=== PATIENT | female | born 1945 | race Caucasian/White ===

== ENCOUNTER → 2024-03-07 13:23 | Outpatient (REF) | payer OTHER, SELFPAY | LOC: HWRAD 13:23 | PROVIDERS: ATTENDING PHYSICIAN Nurse Practitioner Adult Health; FAMILY PHYSICIAN Nurse Practitioner | DX: K86.2 Cyst of pancreas (principal); R10.13 Epigastric pain | CPT/HCPCS: 76700 ==

== ENCOUNTER → 2024-06-25 11:07 | Outpatient (REF) | payer OTHER, SELFPAY | LOC: HWRAD 11:07 | PROVIDERS: ATTENDING PHYSICIAN Internal Medicine Endocrinology, Diabetes & Metabolism; FAMILY PHYSICIAN Nurse Practitioner | DX: E04.2 Nontoxic multinodular goiter (principal) | CPT/HCPCS: 76536 ==

== ENCOUNTER → 2024-08-07 14:42 | Outpatient (REF) | payer OTHER, SELFPAY | LOC: HWWDC 14:42 | DX: Z12.31 Encounter for screening mammogram for malignant neoplasm of breast (principal) | CPT/HCPCS: 77063; 77067 ==

== ENCOUNTER 2024-12-09 15:48 | Emergency (ER) | payer OTHER, SELFPAY ==
[2024-12-09] VITALS (15 sets, daily range): BP systolic 143–192; BP diastolic 68–102; BMI 37.7
--- NOTE | 2024-12-09 20:42 | ED.MUSCINJ ---
HPI-Injury
General
Chief Complaint: Musculo-Skeletal Complaint
Source: patient
Exam Limitations: none
Time Seen by Provider: 12/09/24 20:20
Nursing documentation reviewed up to this point in time: agreed with
History of Present Illness-Injury
Is this injury a work related problem?: No
Is pt an associate of [facility]?: No
Initial Injury comments:
79-year-old female presents Emergency Department due to right shoulder pain. She also got earlier in the week, but not completely out. Today while she was gardening she felt a pop out completely and came to the emergency department by ambulance.
Past History
Past History
ED Past Medical History: NIDDM
ED Past Surgical History: Gynecological (Partial hysterectomy)
Social History
Tobacco: Non-smoker
Alcohol: None
Drug: None
Review of Systems
Review of Systems
Allergies reviewed?: Yes
All Other Systems: Not applicable
Constitutional: Reports no symptoms
EENT: Reports no symptoms
Respiratory: Reports no symptoms
Cardiac: Reports no symptoms
ABD/GI: Reports no symptoms
: Reports no symptoms
Musculoskeletal: Reports joint pain
Skin: Reports no symptoms
Neurological: Reports no symptoms
Endocrine: Reports no symptoms
Hematologic/Lymphatic: Reports no symptoms
Psychiatric: Reports no symptoms
Phy Exam
Physical Exam
Physical Exam:
Physical Exam
General: no apparent distress, not acutely ill
Neck: supple. no meningeal signs. normal posterior pharynx
Heart: s1/s2 regular rate and rhythm, no murmur. equal radial
pulses.
HEENT: Pupils equal round reactive to light, EOMI
Lungs: no acute respiratory distress. clear bilaterally
Abdomen: normal bowel sounds. not tender. no CVAT
Neuro: alert and oriented. no focal neurological deficits cranial nerves II through XII intact
Skin: no rash
Psychiatric: well kept. interactive and cooperative
Extremities: no edema. no calf tenderness. negative homans. good distal pulses, right shoulder anterior deformity
Injury Course
Orders/Labs/Results
Orders:
Orders
12/09/24 16:13
CR Shoulder, Trauma - Right Urgent
Reason For Exam: pain
12/09/24 20:41
ASA Classification Routine
Propofol [Diprivan] 60 mg IV NOW STA
12/09/24 22:02
Shoulder, Right 2 Views [CR Shoulder - Right Min 2 View] Urgent
Comment: portable
Reason For Exam: post reduction
Procedures
Moderate Sedation
ASA Risk Score: Class II
Chart and allergies reviewed: Yes
Consent for anesthesia obtained: Yes
Time out completed (validating right patient & procedure): Yes
Moderate Sedation Start Time(when first medication is given): 21:51
History of difficult intubation: No
Airway free of obstruction: Yes
Patient has a gag reflex: Yes
Patient is able to open mouth: Yes
Patient has no dentures: Yes
Patient has no loose teeth: Yes
Medication administered by Provider during Moderate Sedation: IV Propofol (mg)
Total dose administered: 90
Time drug administered: 21:51
Moderate Sedation Procedure End Time: 22:05
Joint/Fracture Reduction
Right Shoulder:
Indication for procedure:: right shoulder dislocation
Procedure completed by: Jadyn
Consent form signed: Yes
Joint reduced: with anesthesia sedation
Anesthesia/sedation: Moderate sedation
Injury was: closed
Further treatement: needs re-check only
Post reduction exam: stable
Capillary Refill: normal
Normal distal neurovascular exam?: Yes
Peripheral Pulses: radial (right): 4+
MDM/Problems Addressed
Differential Diagnosis Includes:
Humerus fracture, shoulder dislocation
MDM/Problems Addressed:
79-year-old female with right shoulder dislocation, satisfactory reduction under moderate sedation. Patient tolerated sedation well. Sling, follow-up with orthopedic.
*Radiology
Radiology exam reviewed: preliminary read by ED provider (Right shoulder x-ray anterior dislocation)
*Pulse Oximetry
Patient hypoxic: no
*Route Delivery Driver Interpretation
Rate: normal
Interpretation: normal
Heart Rate: 88
Rhythm: sinus
*Critical Care Note
Total Time (30-74mins, 75-104mins- exclusive of procedures): Not Applicable
Patient Management
Social determinants of health affecting care: Living situation and Strong social support
Escalation/DeEscalation of care consider admission/obs:
Admit not indicated
ED Attending Note
-
Portions of this chart may have been created with voice recognition software.� Occasional wrong word or��sound alike� substitutions may have occurred due to the inherent limitations of voice recognition software.
Discharge Plan
Departure
Patient Disposition: Home (Routine Discharge)
Date of Disposition: 12/09/24
Time of Disposition: 23:15
Patient with high blood pressure during this ER visit?: Yes
Condition: Good
Discharge Problem:
Anterior dislocation of right shoulder
Instructions: Shoulder Dislocation (DC), MODERATE SEDATION ADULT, BLOOD PRESSURE
Referrals:
Roxanne Winchester MD [Family Provider] -
Thomas Abreu MD [Active] - Call in 1-3 days for appt
Interventions
Interventions:
*Risk Screen - Suicide Last Done: 12/09/24 21:23
*General Assessment Last Done: 12/09/24 21:23
*Neglect/Abuse Screening Last Done: 12/09/24 21:23
*ED COVID-19 Vaccine History Last Done: 12/09/24 21:23
ED-Musculoskeletal Assessment Last Done: 12/09/24 21:22
Discharge Date and Time
Print Language: FRISIAN
[2024-12-09] MEDS: DIPRIVAN 60 MG IV (21:53)
== END 2024-12-09 23:40 | disposition home or self-care (01) ==
LOC: EMR 15:48
PROVIDERS: EMERGENCY PHYSICIAN Emergency Medicine; FAMILY PHYSICIAN Internal Medicine
DX: S43.014A Anterior dislocation of right humerus, initial encounter (principal); X58.XXXA Exposure to other specified factors, initial encounter; E11.9 Type 2 diabetes mellitus without complications
CPT/HCPCS: 23650; 99152; 99285; 73030

== ENCOUNTER → 2024-12-11 11:53 | Outpatient (REF) | payer OTHER, SELFPAY | LOC: HWRAD 11:53 | PROVIDERS: ATTENDING PHYSICIAN Physician Assistant Surgical | DX: S43.004A Unspecified dislocation of right shoulder joint, initial encounter (principal) | CPT/HCPCS: 73200 ==

== ENCOUNTER → 2024-12-19 11:10 | Outpatient (REF) | payer OTHER, SELFPAY | LOC: PET 11:10 | PROVIDERS: ATTENDING PHYSICIAN Internal Medicine Hematology & Oncology | DX: R91.1 Solitary pulmonary nodule (principal) | CPT/HCPCS: 78815; A9552 ==

== ENCOUNTER → 2025-01-03 09:42 | Outpatient (REF) | payer OTHER, SELFPAY | LOC: RAD 09:42 | PROVIDERS: ATTENDING PHYSICIAN Internal Medicine Critical Care Medicine | DX: R91.8 Other nonspecific abnormal finding of lung field (principal) | CPT/HCPCS: 71250 ==

== ENCOUNTER 2025-01-08 06:05 | Day surgery (SDC) | payer OTHER, SELFPAY ==
[2025-01-03 14:09] VITALS: BMI 32.0
[2025-01-08 06:45] VITALS: BMI 32.7
[2025-01-08 06:50] VITALS: BP 136/76
[2025-01-08 07:10] VITALS: BMI 32.7
[2025-01-08 07:37] LABS: Glucose - Point of Care 138 mg/dl (70-99)
--- NOTE | 2025-01-14 00:53 | W.PN.UPDATE ---
Update Note
Progress Note Update
Today's procedure (01/08/2025) was canceled as patient had no body to physically come to the hospital to pick her up. Her plan was to take public transportation back home after the procedure and then have a friend stay with her for the remainder of
the evening. The pt does not have any body's cell phone or other contact information on her phone. Patient was explained the dangers of letting her go home unattended given the anesthesia that was going to be given to her, lindy at her age. She was
upset, but ultimately understood. I updated the referring teacher selection specialist, Dr. Barragan, as well as her Oncologist, Dr. Yee and even her Orthopedic doctor so that everyone is on the same page. Procedure to be re-scheduled urgently. She was advised
that she physically needs to have someone come to the hospital to pick her up next time, otherwise she risks the procedure again being canceled/rescheduled. She understood my instructions.
(of note, this update note reflects the conversation and other clinical care that took place on the morning of 01/08/2025)
== END 2025-01-08 09:25 | disposition home or self-care (01) ==
LOC: GI 06:05
PROVIDERS: ATTENDING PHYSICIAN Internal Medicine Critical Care Medicine
DX: R91.8 Other nonspecific abnormal finding of lung field (principal); R06.02 Shortness of breath; K21.00 Gastro-esophageal reflux disease with esophagitis, without bleeding; Z53.9 Procedure and treatment not carried out, unspecified reason
CPT/HCPCS: 31622; 82962; 94640

== ENCOUNTER 2025-01-22 06:23 | Day surgery (SDC) | payer OTHER, SELFPAY ==
[2025-01-22] VITALS (11 sets, daily range): BP systolic 120–172; BP diastolic 57–109; BMI 33.0
[2025-01-22 08:42] LABS: Glucose - Point of Care 129 mg/dl (70-99)
--- NOTE | 2025-01-22 09:53 | PTCARENOTE ---
Dr. Adkins and Dr. Stuart aware of ride situation home and discussed with patient extensively on 01/15. Patient will be taking hospital LYFT home. Dr. August aware and will place a D/C order to home via LYFT.
[2025-01-22 13:00] LABS: Glucose - Point of Care 113 mg/dl (70-99)
--- NOTE | 2025-01-22 14:46 | CM ---
CM was advised that patient does not have a ride home despite multiple conversations. CM will provide patient a ride via Lyft.
--- NOTE | 2025-01-22 15:21 | W.PN.UPDATE ---
Update Note
Progress Note Update
Patient tolerated the robotic bronchoscopy without any immediate complications. Post bronchoscopy CXR showed no evidence of pneumothorax. Okay for patient to be discharged home via Lyft. SpO2 just prior to discharge was 94% on room air.
== END 2025-01-22 15:10 | disposition home or self-care (01) ==
LOC: GI 06:23
PROVIDERS: ATTENDING PHYSICIAN Internal Medicine Critical Care Medicine
DX: R91.1 Solitary pulmonary nodule (principal); C34.11 Malignant neoplasm of upper lobe, right bronchus or lung; R91.8 Other nonspecific abnormal finding of lung field; Z87.891 Personal history of nicotine dependence
CPT/HCPCS: 31629; 31628; 31624; 31623; 31627; 31654; 88173; 88305; 71045; 76000; 81459; 82962; 87015; 87070; 87102; 87116; 87205; 88112; 88333; 88341; 88342; 94640; C1887

== ENCOUNTER 2025-03-03 07:11 | Inpatient (IN) | payer OTHER, SELFPAY ==
[2025-02-20 12:12] VITALS: BMI 33.9
[2025-02-20 13:01] LABS: Hematocrit 37.4 % (37.0-47.0); Hemoglobin 12.4 g/dL (12.0-16.0); Mean Corp Hgb Conc. 33.2 g/dL (33.0-37.0); Mean Corpuscular Volume 87.6 fL (81.0-99.0); Nucleated Red Blood Cells % 0 %; Platelet Count 254 10^3/uL (130-400); Red Cell Dist. Width 14.7 % (11.5-14.5)
[2025-02-20 13:08] LABS: INR 0.98; PT 13.5 Sec (11.4-14.6)
[2025-02-20 13:48] LABS: ALT (SGPT) 17 U/L (0-35); AST (SGOT) 20 U/L (14-36); Albumin 4.2 g/dl (3.5-5.0); Alkaline Phosphatase 119 U/L (38-126); Blood Urea Nitrogen 15 mg/dl (7-17); Calcium 9.5 mg/dl (8.4-10.2); Carbon Dioxide 25 mmol/L (22-30); Chloride 106 mmol/L (98-107); Estimated Creatinine Clearance 55 ml/min; Glucose 104 mg/dl (70-99); Potassium 3.9 mmol/L (3.5-5.1); Sodium 137 mmol/L (135-145); Total Protein 7.0 g/dl (6.3-8.2); eGFR > 60.00
[2025-02-20 13:58] LABS: Urine Character Clear (Clear)
--- NOTE | 2025-02-20 14:50 | CM ---
Met with Miss Dorsey in [facility]. She states prior to admission she resides alone in a two story home without any steps to enter. She states she has to go up a full flight of steps to get to bedroom/full bathroom. She states she has a powder room on
the first floor. She states prior to admission she was independent with ambulation and adls. She states she does not have any DME in the home. She states she has a prescription plan and uses [facility]. She is hoping she will be able to return
home alone. The discharge plan is to return home with a home visit by the Transitional Care Nurse when medically stable.
We reviewed pre-op and post-op routines. We reviewed the shower instructions. She has the soap, written instructions and the Thoracic (Lung) Surgery Educational Booklet. We reviewed restrictions including lifting and driving restrictions.. We
also discussed a home visit by the Transitional Care Nurse. She is agreeable to a home visit. The plan is for RATS RUL and LN dissection on Monday, March 03, 2025.
[2025-02-20 15:00] LABS: Glycohemoglobin (HgbA1c) 6.6 % (4.0-5.6)
[2025-03-03] VITALS (16 sets, daily range): BP systolic 97–150; BP diastolic 52–97; BMI 33.0
--- NOTE | 2025-03-03 10:15 | PTCARENOTE ---
Patient clipped and prepped; CHG cloth bath given; ABO drawn by tree pruner and sent to lab; Report given to Denita AVILA
[2025-03-03 11:05] LABS: Urine Character Clear (Clear)
--- NOTE | 2025-03-03 11:19 | W.CVOR.SURPR ---
CVOR Surgeon Immed Pre Op
-
I have examined this patient prior to performance of the scheduled procedure.
The patient's condition is unchanged from the time of the dictated/written History and
Physical and the patient is able to undergo the scheduled procedure.
RUL + LN
[2025-03-03 11:41] LABS: Urine Squamous Cell >30 /LPF (Few)
[2025-03-03 11:42] LABS: Urine Urothelial Cell 0-2 /LPF (FEW)
[2025-03-03 11:43] LABS: Urine Red Blood Cell 0-2 /HPF (0-2)
[2025-03-03 13:17] LABS: B.E. - POC -0.0 mmol/L; Glucose - POC 109 mg/dl (70-99); HCO3 - POC 25 mmol/L (21-28); Hematocrit - POC 33 % PCV (37-47); Hemodilution- POC No; Hemoglobin Calculated - POC 11.3; Ionized Calcium - POC 1.22 mmol/L (1.15-1.33); Lactate - POC 0.76 mmol/L (0.36-0.75); O2 Saturation %Calculated-POC 96.8 % (94-98); PCO2 - POC 43 mmHg (35-48); PO2 - POC 91 mmHg (83-108); Potassium - POC 4.0 mmol/L (3.5-5.1); Sodium - POC 140 mmol/L (136-145); Specimen Type - POC Arterial; pH - POC 7.38 (7.35-7.45)
--- NOTE | 2025-03-03 13:59 | W.PN.CT.SURG ---
CT Surgery Operative Note
-
THORACIC SURGERY OPERATIVE REPORT
Preoperative Diagnosis: Right upper lobe adenocarcinoma
Postoperative Diagnosis: Same
Procedure(s) Performed:
1. Robotic assisted thoracic surgery [R ATS]
2. Right upper lobectomy with partial wedge of the right middle lobe using electrocautery as it was adherent to the right upper lobe mass
3. Radical lymph node dissection
4. Regional block by anesthesia
Date of Surgery: 03/03/2025
Comorbidities:
1. Right upper lobe adenocarcinoma
2. Ocular aneurysm
3. Thyroid nodules
4. Osteoporosis
5. Colonic polyps
6. Rotator cuff tear awaiting surgery
7. Hypertension
8. Diabetic
9. Pancreatic cyst
10. GERD
11. PUD
12. Skin cancer status post resection
Attending Surgeon: Anson Dorado MD, MS
Assistants: Ambreen Cook PA-C (present and necessary to first aid officer, exchanging robotic instruments, retraction, suction, exposure, suture management, and wound closure under my direction)
Anesthesiology: Petros Preston MD and Meme Lorenzana CRNA
Scrub and Circulating RNs: Sridhar Crenshaw, RN, Lopez Guzman RN
Anesthesia: Dual Lumen GETA
EBL: 100 cc
Products: None
Indication(s) for Procedures: This is an 80-year-old female who was independent and found to have right upper lobe adenocarcinoma. She is referred to me for right upper lobe resection versus SBRT. Given that she is independent, travels around and
quite functional, I offered her right upper lobectomy with liver dissection given her cancer was a stage I A3.
Findings: There were no obvious intrathoracic lesions concerning for disease, she did have significant emphysema with hyperinflation of her right lung that required multiple suctioning in order to deflate. The right upper lobe mass was easily
identified as there was puckering. There was an area that was adherent to the right middle lobe and so using electrocautery, a margin of several millimeters was taken here leaving it adherent to the mass. She had rarely poorly developed fissures
and so a significant mount of time was spent dissecting through the lung parenchyma the right upper, right middle and right lower lobes. Once the confluence of the pulmonary artery was able to be identified deep inside the fissure I
followed this and developed the posterior and anterior planes. She had several large bridging vessels between her lobes and vessel sealer was used here. Multiple lymph nodes were harvested but not appearing to be abnormal. Once the right upper
lobe was skeletonized, the vein was taken first followed by the large truncal branch to the right upper lobe from the pulmonary artery followed by the bronchus. Before dividing the bronchus I did test clamp it and had anesthesia give some breaths
the right lung which found unobstructed flow to the right lower and middle lobes. There was a +1 continuous air leak while on positive pressure ventilation which was not unexpected given how fragile her tissue was, at the level of parenchymal
dissection and and her severe emphysema.
Specimen(s):
Station 9, x 1 nodes
Station 8, x 2 nodes
Station 10, x 2 nodes
Station 11, x 2 nodes
Station 7, x 4 nodes
Right upper lobe lobe, stitch monzon the site of adherence to the right middle lobe and so additional tissue was taken for margin
Description of Procedure: The patient was taken to the operating room. Induction via general anesthesia with endotracheal intubation was performed and peripheral venous access and arterial monitoring were inserted. Their identity and procedure to be
performed were verified and they were positioned with the right side up on the operating table. The patient was then prepped and draped in a sterile fashion. A preoperative time-out was performed with all members of the team present. A Veress
needle was used to insufflate the chest after isolating the lung. An 8 mm port was placed in the midaxillary line at approximately the eighth intercostal space and confirmed to be intrathoracic without significant pulmonary injury. The chest was
surveyed for any evidence of metastatic disease. Patient tolerate insufflation without complication. 2 additional 12 mm trocars were placed on either side under camera guidance and a third 8 mm trocar was placed along the back. A 12 mm accountant assistant
port was placed in the 11th intercostal space above the insertion of the diaphragm.
The thoracic cavity was inspected for evidence of metastatic disease. None was observed. We started with mobilization of the inferior pulmonary ligament. We worked our way clockwise dissecting out the hilum and harvest any lymph nodes identified.
Her fissures were poorly developed and so using a combination of spatula and bipolar cautery I dissected through the lung parenchyma. A vessel sealer was used to take any large venous branches bridging between the lobes. Once the confluence of the
pulmonary artery was able to be identified I used this in order to find the plane anteriorly and posteriorly. The lung parenchyma was taken with several fires of green load staplers. At this point the pulmonary vein leading to the right upper lobe
was visualized and mobilized free from the pulmonary artery. This was divided using a white load stapler flush to the hilum. Next the large truncal branch feeding the right upper lobe was away from the bronchus intermedius. A vest loop
was placed between and using a white load stapler the pulmonary artery was then divided. I clamped the bronchus and performed a test inflation which demonstrated unobstructed flow into the remaining middle and lower lobe. The specimen was displaced
toward the apex while a chest tube was inserted and placed laterally towards the apex. CoSeal was used to reinforce the staple lines and hilum. Additional hemostatic and sealant was used along the raw parenchymal surface. The right upper was
then placed into a specimen bag and extracted from the chest cavity. After confirming hemostasis, the lung was fully inflated and all ports were removed. Incisions were closed in 3 layers including the fascia, dermal, and epidermis. Additional
local anesthesia was injected into all incision sites. The skin wound was cleansed and sealed with Dermabond glue.
All instrument, sponge, and needle counts were confirmed to be correct x 2 at the end of the operation. The patient was transferred to the cardiac intensive care unit extubated in critical but stable condition.
I, Dr. Anson Dorado, was present, scrubbed for, and performed all critical elements of this procedure.
Anson Dorado MD, MS
Cardiothoracic Surgeon
[facility]
This operative dictation was created using the FanTree system. Please excuse any grammatical, typographical, or 'sound alike' errors
[2025-03-03] MEDS: DILAUDID 0.25 MG IV ×3 (14:44→17:55)
[2025-03-03] MEDS: TORADOL 15 MG IV ×2 (15:01→22:28)
--- NOTE | 2025-03-03 16:22 | PTCARENOTE ---
Patient received from PACU - report given by MARIO RN; Drowsy and forgetful but responds to verbal stimulation; VSS; NSR on monitor; +1 DP and +2 radial pulses; SpO2 95-100% on 4L NC; Lungs diminished throughout with expiratory wheezing; Chest tubes x1
connected to -20 cm wall suction draining bloody drainage - +1 air leak and tidaling present but no crepitus at this time; Hypoactive BS; DTV; PIVx2 - #20 right hand and #16 LAC; Left radial A-line - leveled and zeroed; 3 puncture sites glued and
approximated - CDI; See nursing documentation for further details
[2025-03-03] MEDS: TYLENOL PO (17:11)
[2025-03-03] MEDS: NEURONTIN PO (17:12)
[2025-03-03] MEDS: VITAMIN C 500 MG PO (17:18)
[2025-03-03] MEDS: VITAMIN D3 (cholecalciferol) 125 MCG PO (17:18)
[2025-03-03] MEDS: NEURONTIN 100 MG PO ×2 (17:18→22:27)
[2025-03-03] MEDS: LOPRESSOR 12.5 MG PO (17:18)
[2025-03-03] MEDS: ANCEF 10 IV ×2 (17:18)
[2025-03-03] MEDS: SENOKOT 8.6 MG PO (17:19)
[2025-03-03] MEDS: HEPARIN 5000 UNITS SC (17:19)
[2025-03-03] MEDS: MIRALAX 17 GRAMS PO (17:19)
--- NOTE | 2025-03-03 18:13 | PTCARENOTE ---
A-line discontinued by RN at bedside; No complications noted; PRN IV Dilaudid given accordingly for pain; Patient resting comfortably in bed
[2025-03-03] MEDS: LOPRESSOR PO (20:12)
[2025-03-03] MEDS: SENOKOT PO (20:13)
[2025-03-03] MEDS: ANCEF 5 IV (20:17)
--- NOTE | 2025-03-03 20:30 | PTCARENOTE ---
Patient received resting in bed watching television. Patient A+A+Ox3. No neurological deficits noted. No c/o headache, dizziness or lightheadedness. O2 at 3L via NC. SpO2 97%. Right lateral chest tube intact - 40 ml red drainage - +1 air leak
- No crepitus noted - Dressing intact. Sinus Rhythm. Heart rate 60's. Blood pressure 125/63 (82). Patient with no c/o chest pain, pressure or discomfort. Abdomen soft, nontender. Normoactive bowel sounds. No BM. No c/o nausea. No vomiting.
External urinary device placed for HS (Pure Wick). Positive, palpable pulses. Right lateral chest/back incision/puncture sites intact - Open to air. CHG bath and linens changed. Assessment as documented.
[2025-03-03] MEDS: TYLENOL 1000 MG PO (22:28)
--- NOTE | 2025-03-03 23:23 | W.PN.CT ---
Today's Communication / Plan
-
Plan:
-Pt was successfully extubated in the OR on 03/03/25
-Chest tube is on -20 cmH2o wall suction with intermittent 1+ air leak
-Chest tube drainage:
-CXR this AM with small right apical ptx and mild right shoulder SQ emphysema on my assessment, f/u official report
-Will discuss chest tube to suction another day vs water seal
-OOB into chair/Ambulate
-F/U pathology
-Home in 1-2 days
Assessment / Plan
-
Assessment:
S/P Robotic assisted thoracic surgery [RATS]/ Right upper lobectomy with partial wedge of the right middle lobe using electrocautery as it was adherent to the right upper lobe mass/Radical lymph node dissection/Regional block by anesthesia, by
Dorado, 03/03/25, pod#1
1. Right upper lobe adenocarcinoma
2. Ocular aneurysm
3. Thyroid nodules
4. Osteoporosis
5. Colonic polyps
6. Rotator cuff tear, awaiting surgery
7. Hypertension
8. Diabetic
9. Pancreatic cyst
10. GERD
11. PUD
12. Skin cancer status post resection
13. Class 1 obesity (BMI 33)
Discussed patient care with: Cardiology, Nursing, Respiratory Therapy, Pharmacy and Care Team
Subjective
-
Date of Service: March 03, 2025
Pt c/o mild incisional pain
Objective Data
-
Lab Results
02/20/25 12:46
02/20/25 12:46
PT 13.5 Sec (11.4-14.6) 02/20/25 12:46
INR 0.98 02/20/25 12:46
Vital Signs
Vital Signs
Temp Pulse Resp BP Pulse Ox
98.0 F 66 17 112/60 94
03/03/25 20:00 03/03/25 22:20 03/03/25 22:20 03/03/25 22:00 03/03/25 22:20
CT Intake/Output/Weight
03/03/25 03/03/25 03/04/25
06:59 18:59 06:59
Intake Total 320 / 560 240 / 560
Output Total 320 / 360 40 / 360
Balance 0 / 200 200 / 200
SaO2: 94 (RA)
Physical Exam
-
General: Awake, Oriented and AOx3
Cardiovascular: Regular rate & rhythm, No Murmurs, No Rub and No Gallop
Respiratory: Decreased Breath Sounds (on right, otherwise clear)
Sternum: Stable
Incision: Clean, Dry, Intact and Dressing Intact
Extremities: No Edema
Data Reviewed
-
Lab Results: Results Reviewed
Medications: Active Meds Reviewed
Chest X-Ray: Report Reviewed and Image Reviewed
ECG: Report Reviewed and Image Reviewed
[2025-03-04] VITALS (11 sets, daily range): BP systolic 105–140; BP diastolic 50–80; BMI 33.0
[2025-03-04] MEDS: HEPARIN 5000 UNITS SC ×3 (00:17→17:22)
--- NOTE | 2025-03-04 00:30 | PTCARENOTE ---
Patient sleeping without difficulty. No further changes from previous assessment.
[2025-03-04 03:59] LABS: Hematocrit 36.2 % (37.0-47.0); Hemoglobin 12.3 g/dL (12.0-16.0); Mean Corp Hgb Conc. 34.0 g/dL (33.0-37.0); Mean Corpuscular Volume 89.2 fL (81.0-99.0); Platelet Count 246 10^3/uL (130-400); Red Cell Dist. Width 15.0 % (11.5-14.5)
[2025-03-04] MEDS: ANCEF 5 IV ×2 (04:13→12:55)
[2025-03-04 04:26] LABS: Blood Urea Nitrogen 14 mg/dl (7-17); Calcium 8.9 mg/dl (8.4-10.2); Carbon Dioxide 27 mmol/L (22-30); Chloride 106 mmol/L (98-107); Estimated Creatinine Clearance 63 ml/min; Glucose 156 mg/dl (70-99); Magnesium 2.3 mg/dl (1.6-2.3); Potassium 4.9 mmol/L (3.5-5.1); Sodium 136 mmol/L (135-145); eGFR > 60.00
[2025-03-04] MEDS: TYLENOL 1000 MG PO ×3 (05:58→19:54)
--- NOTE | 2025-03-04 06:00 | PTCARENOTE ---
Patient A+A+Ox3. No neurological deficits noted. Right lateral chest tube continues with +1 air leak - Outputs as documented. Patient OOB to bedside commode with assist x1 - Voided 450 ml yellow urine. Standing scale weight 81.7 kg. Patient
back to bed. AM lab work collected and sent. Portable CXR completed. Pain management. Assessment/Interventions as documented.
[2025-03-04] MEDS: VITAMIN D3 (cholecalciferol) 125 MCG PO (08:58)
[2025-03-04] MEDS: MIRALAX 17 GRAMS PO (08:58)
[2025-03-04] MEDS: LIDOCAINE 4% PATCH 1 PATCH TOPICAL (08:58)
[2025-03-04] MEDS: LOPRESSOR 12.5 MG PO ×2 (08:58→19:54)
[2025-03-04] MEDS: SENOKOT 8.6 MG PO ×2 (08:58→19:54)
[2025-03-04] MEDS: VITAMIN C 500 MG PO (08:58)
[2025-03-04] MEDS: NEURONTIN 100 MG PO ×3 (08:58→19:55)
--- NOTE | 2025-03-04 10:00 | PTCARENOTE ---
Patient received from manufacturing engineering professor RN; AAOx3, responds spontaneously to RN and follows commands; [place]; Forgetful; VSS; NSR on monitor; Trace generalized anasarca; +1 DP and +2 radial pulses; Shallow respirations; SpO2 94-100% on 2L NC; Lungs coarse
throughout with expiratory wheezing; Chest tubes x1 connected to -20 cm wall suction draining serosanguineous drainage adjusted to -10 cm by MD Dorado at 0830 - +1 air leak and tidaling present but no crepitus at this time; Patient passing gas;
Patient urinating clear, yellow urine in bathroom; PIVx2 - #20 right hand and #16 LAC; 3 puncture sites glued and approximated - CDI; Right shoulder/arm with LROM d/t previous injury prior to surgery; See nursing documentation for further details
--- NOTE | 2025-03-04 12:08 | CM ---
Chart reviewed. Patient is independent of ADLS, lives alone 2 STH, 0 JOSH, 0 DME. Plan is for the patient to return home with CT Transitional RN. CM to follow
--- NOTE | 2025-03-04 12:45 | PTCARENOTE ---
Assumed care of patient at 11:00. Assessment completed and documented in shift assessment on worklist.
No notable changes to prior morning assessment. Assisted patient to the bathroom after she had sat in the chair all morning and then patient requested to return to bed to rest. Continues with chest tube to -10 wall suction. +Air Leak, +Tidaling,
-Crepitus. No changes to suction settings confirmed by Dr. Dorado after repeat CXR this morning.
[2025-03-04] MEDS: ROXICODONE 2.5 MG PO (19:53)
[2025-03-04] MEDS: REMOVE LIDOCAINE PATCH 1 PATCH REMOVE (19:55)
--- NOTE | 2025-03-04 20:00 | PTCARENOTE ---
assumed care of patient @ 1900. received pt sitting in chair, Aox3.NSR on tele. Good pulses, +1 edema. BP stable. c/o severe pain, bernard given. Lungs coarse on R side, satting mid 90s on 2L. 88 on RA. R pleural chest tube to -10 cm suction , +1 air
leak w/ tidaling. Belly round, obese, +BS. voiding clear lois urine in hat. Surgical incisions CDI, BOX CHIPPER with surgical glue. assisted pt to bathroom and back to bed. now resting with call burk within reach .
[2025-03-05] VITALS (7 sets, daily range): BP systolic 107–138; BP diastolic 48–74; BMI 33.2
--- NOTE | 2025-03-05 | PTCARENOTE ---
pt with episode of apnea with desat to the 60s, quickly resolved to the 90s. 02 increased from 2 to 4L. satting mid 90s on 4L. otherwise no change in patient assessment, call burk within reach .
[2025-03-05] MEDS: HEPARIN 5000 UNITS SC ×3 (00:05→16:36)
--- NOTE | 2025-03-05 04:07 | PTCARENOTE ---
pt resting comfortably in bed, no change in assessment .
[2025-03-05] MEDS: TYLENOL 1000 MG PO ×3 (05:06→20:05)
[2025-03-05] MEDS: ROXICODONE 2.5 MG PO (05:06)
--- NOTE | 2025-03-05 07:58 | W.PN.CT ---
Today's Communication / Plan
-
-pod #2
-no issues overnight
-R CT @ -10 suction with +1 air leak.
-R small-mod PTX with small amount of right supraclavicular subcutaneous emphysema present on CXR - appears stable from CXR yesterday 03/04
-encourage IS
Assessment / Plan
-
- S/P Robotic assisted thoracic surgery [RATS]/ Right upper lobectomy with partial wedge of the right middle lobe using electrocautery as it was adherent to the right upper lobe mass/Radical lymph node dissection/Regional block by anesthesia, by
Dorado, 03/03/25, pod#2
1. Right upper lobe adenocarcinoma
2. Ocular aneurysm
3. Thyroid nodules
4. Osteoporosis
5. Colonic polyps
6. Rotator cuff tear, awaiting surgery
7. Hypertension
8. Diabetic
9. Pancreatic cyst
10. GERD
11. PUD
12. Skin cancer status post resection
13. Class 1 obesity (BMI 33)
- Acute postop small-mod R PTX with small amount right supraclavicular subcutaneous emphysema
Discussed patient care with: Nursing and Care Team
Subjective
-
Date of Service: March 05, 2025
Objective Data
-
Lab Results
03/04/25 03:49
03/04/25 03:49
PT 13.5 Sec (11.4-14.6) 02/20/25 12:46
INR 0.98 02/20/25 12:46
Vital Signs
Vital Signs
Temp Pulse Resp BP Pulse Ox
98.9 F 55 12 107/57 96
03/05/25 04:21 03/05/25 02:00 03/05/25 04:21 03/05/25 00:06 03/05/25 04:21
CT Intake/Output/Weight
03/04/25 03/05/25 03/05/25
18:59 06:59 18:59
Output Total 910 / 1580 670 / 1580 55 / 55
Balance -910 / -1580 -670 / -1580 -55 / -55
SaO2: 96
Physical Exam
-
General: Awake and AOx3
Cardiovascular: Regular rate & rhythm, No Murmurs and No Rub
Respiratory: Other (crackles on the R, decreased and clear on L. No wheeze b/l)
Incision: Clean, Dry and Dressing Intact
Extremities: Other (trace edema b/l)
Abdomen: soft, nontender, nondistended, + bowel sounds
Data Reviewed
-
Lab Results: Results Reviewed
Medications: Active Meds Reviewed
Chest X-Ray: Report Reviewed and Image Reviewed
ECG: Report Reviewed and Image Reviewed
--- NOTE | 2025-03-05 08:30 | PTCARENOTE ---
Assumed care of patient at 0700. Pt is awake, alert, and oriented. Pt with complaints of right sided chest pain. Pt remains SR with HR 64. BP 116/48 MAP 66. Pulse oximetry 100% on 4L nasal cannula. Right lateral chest tube in place to -10 suction,
+1 air leak and tidaling present, drainage serosanguineous. Pt tolerating PO diet. Voiding in bathroom without issue. Right lateral incisions approximated with surgical adhesive. Pt currently OOB in chair with call burk within reach.
[2025-03-05] MEDS: MIRALAX 17 GRAMS PO (09:00)
[2025-03-05] MEDS: VITAMIN C 500 MG PO (09:00)
[2025-03-05] MEDS: SENOKOT 8.6 MG PO (09:00)
[2025-03-05] MEDS: NEURONTIN 100 MG PO ×3 (09:00→20:05)
[2025-03-05] MEDS: LOPRESSOR 12.5 MG PO ×2 (09:00→20:05)
[2025-03-05] MEDS: VITAMIN D3 (cholecalciferol) 125 MCG PO (09:00)
[2025-03-05] MEDS: LIDOCAINE 4% PATCH TOPICAL (09:01)
[2025-03-05] MEDS: LASIX 20 MG IV (09:01)
--- NOTE | 2025-03-05 10:58 | PN.CDI ---
CDI
- -
CDI:
Physician Documentation Request
Admit Date: 03/03/25 07:[address],
Patient is POD #2 Robotic assisted thoracic surgery Right upper lobectomy with partial wedge of the right middle lobe/Radical lymph node dissection
03/03 Urine culture positive for Enterococcus species.
UA
03/03/25
10:45
Urine Color Yellow
Urine Clarity Clear
Ur Occult Blood Reflex 2+ A
Urine Nitrite (Reflex) Negative
Leukocyte Esterase Rfl 2+ A
Could you please provide a diagnosis that supports the above lab abnormalities and additional evaluation,/monitoring:
UTI
Asymptomatic bacteruria
Other
Use of terms such as suspected, likely, concern for, or probable (associated with a specific diagnosis that is being evaluated, monitored, or treated as if it exists) are acceptable and can be coded in the inpatient setting, when documented at the
time of discharge.
Thank you,
Myra Ewing RN BSN
CDI Specialist
tiger text
Please use your independent medical judgment in providing your response.
--- NOTE | 2025-03-05 12:57 | CM ---
Chart reviewed. Patient is OOB sitting in the chair. Patient is independent of ADLS, lives alone in a 2 STH, 0 JOSH, 0 DME. Patient with a neighbor who can help patient with needs when she goes home. Patient is unsure of who will transport
her home when she is medically stable for discharge. Plan is for the patient to return home with CT Transitional RN. CM to follow
--- NOTE | 2025-03-05 13:00 | PTCARENOTE ---
Pt remains SR with HR 06's. BP 136/71 MAP 88. Pulse oximetry 94% on room air. Pt remains OOB in chair with call burk within reach.
--- NOTE | 2025-03-05 16:55 | PTCARENOTE ---
Chest tube dressing changed. Pt remains SR with HR 77. BP 138/74 MAP 93. Pulse oximetry 94% on room air. Chest tube remains intact, continues to have +1 air leak and tidaling.
[2025-03-05] MEDS: REMOVE LIDOCAINE PATCH REMOVE (20:06)
--- NOTE | 2025-03-05 20:15 | PTCARENOTE ---
Assumed care of patient from previous rn. Pt is AAOx3. Pt remains NSR on monitor. +pulses. pox 94% on RA. Right lateral chest tube in place to -10 suction, +1 air leak and tidaling present, drainage serosanguineous. Pt tolerating PO diet. Voiding in
bathroom without issue. Right lateral incisions approximated with surgical adhesive. Pt currently OOB in chair with call burk within reach. plan of care discussed and questions encouraged.
[2025-03-05] MEDS: SENOKOT PO (20:37)
[2025-03-06] VITALS (7 sets, daily range): BP systolic 119–152; BP diastolic 53–88; BMI 32.9
--- NOTE | 2025-03-06 00:11 | PTCARENOTE ---
pt resting comfortable in bed. VSS, NSR per tele monitor. assessment remains unchanged.
[2025-03-06] MEDS: ROXICODONE 2.5 MG PO (02:09)
[2025-03-06] MEDS: LIDOCAINE 4% PATCH 1 PATCH TOPICAL ×2 (02:29→09:51)
[2025-03-06] MEDS: DILAUDID 0.25 MG IV (02:40)
--- NOTE | 2025-03-06 02:50 | PTCARENOTE ---
pt having increasing pain around CT site. CTPA made aware. See OCT.
[2025-03-06] MEDS: FLEXERIL 5 MG PO ×2 (04:58→20:23)
[2025-03-06] MEDS: TYLENOL 1000 MG PO ×3 (05:00→22:15)
--- NOTE | 2025-03-06 06:02 | W.PN.CT ---
Today's Communication / Plan
-
-pod #3
-some pain overnight
-R CT @ -10 suction with +1 air leak with expiration
-R small-mod PTX with small amount of right supraclavicular subcutaneous emphysema present on CXR - appears stable from CXR yesterday 03/04 [address] 03/05. CT appears to have migrated slightly upwards in the chest
-encourage IS
Assessment / Plan
-
- S/P Robotic assisted thoracic surgery [RATS]/ Right upper lobectomy with partial wedge of the right middle lobe using electrocautery as it was adherent to the right upper lobe mass/Radical lymph node dissection/Regional block by anesthesia, by
Dorado, 03/03/25, pod#3
1. Right upper lobe adenocarcinoma
2. Ocular aneurysm
3. Thyroid nodules
4. Osteoporosis
5. Colonic polyps
6. Rotator cuff tear, awaiting surgery
7. Hypertension
8. Diabetic
9. Pancreatic cyst
10. GERD
11. PUD
12. Skin cancer status post resection
13. Class 1 obesity (BMI 33)
- Acute postop small-mod R PTX with small amount right supraclavicular subcutaneous emphysema
Discussed patient care with: Nursing and Care Team
Subjective
-
Date of Service: March 06, 2025
Objective Data
-
Lab Results
03/04/25 03:49
PT 13.5 Sec (11.4-14.6) 02/20/25 12:46
INR 0.98 02/20/25 12:46
Vital Signs
Vital Signs
Temp Pulse Resp BP Pulse Ox
98.3 F 63 16 139/53 94
03/06/25 00:00 03/06/25 04:44 03/06/25 04:00 03/06/25 04:44 03/06/25 04:00
CT Intake/Output/Weight
03/05/25 03/05/25 03/06/25
06:59 18:59 06:59
Output Total 670 / 1580 2215 / 3085 870 / 3085
Balance -670 / -1580 -2215 / -3085 -870 / -3085
SaO2: 94
Physical Exam
-
General: Awake and AOx3
Cardiovascular: Regular rate & rhythm, No Murmurs and No Rub
Respiratory: Other (crackles on R)
Sternum: Stable
Incision: Clean, Dry and Dressing Intact
Extremities: Other (trace edema b/l)
Data Reviewed
-
Lab Results: Results Reviewed
Medications: Active Meds Reviewed
Chest X-Ray: Report Reviewed and Image Reviewed
ECG: Report Reviewed and Image Reviewed
[2025-03-06 06:03] LABS: Blood Urea Nitrogen 16 mg/dl (7-17); Calcium 9.5 mg/dl (8.4-10.2); Carbon Dioxide 29 mmol/L (22-30); Chloride 105 mmol/L (98-107); Estimated Creatinine Clearance 56 ml/min; Glucose 149 mg/dl (70-99); Potassium 4.7 mmol/L (3.5-5.1); Sodium 136 mmol/L (135-145); eGFR > 60.00
[2025-03-06] MEDS: NEURONTIN 100 MG PO ×3 (09:50→22:15)
[2025-03-06] MEDS: LOPRESSOR 12.5 MG PO ×2 (09:50→19:35)
[2025-03-06] MEDS: SENOKOT 8.6 MG PO ×2 (09:50→19:35)
[2025-03-06] MEDS: HEPARIN 5000 UNITS SC ×3 (09:50→15:19)
--- NOTE | 2025-03-06 09:50 | PTCARENOTE ---
Assumed care of patient at 0700. Pt is awake, alert, and oriented. Pt with complaints of pain at chest tube site, pt refused additional pain medications at this time. Pt remains SR with HR 63. BP 125/72 MAP 87. Pulse oximetry 92% on room air. Right
lateral chest tube initially to -10 suction, now to water seal per order. Continues to have +1 air leak in chest tube. Pt tolerating PO. Pt voiding without issue. Right lateral incisions approximated and [employer].
[2025-03-06] MEDS: VITAMIN D3 (cholecalciferol) 125 MCG PO (09:51)
[2025-03-06] MEDS: MIRALAX 17 GRAMS PO (09:51)
[2025-03-06] MEDS: VITAMIN C 500 MG PO (09:51)
--- NOTE | 2025-03-06 10:57 | W.PN.UPDATE ---
Update Note
Progress Note Update
Preoperative urine culture from 03/03 reported back on 03/06 shows E. Faecalis (>100,000k) UTI. Patient started on Macrobid 100 mg twice daily x 3 days.
--- NOTE | 2025-03-06 11:28 | CM ---
Chart reviewed. Patient OOB sitting in the chair. Patient with CT to H20 seal and mod pneumo, CT placed back to suction. Patient is independent of ADLS, lives alone in a 2 STH, 0 JOSH, 0 DME. Plan is for the patient to return home with CT
Transitional RN. CM to follow
--- NOTE | 2025-03-06 11:30 | PTCARENOTE ---
Repeat chest x-ray obtained. Chest tube back to -10 suction. Remains SR with HR 72. BP 132/63 MAP 83. Pulse oximetry 94% on room air.
[2025-03-06] MEDS: MACROBID 100 MG PO ×2 (12:35→19:35)
[2025-03-06] MEDS: REMOVE LIDOCAINE PATCH 1 PATCH REMOVE ×2 (15:20→20:00)
--- NOTE | 2025-03-06 15:40 | PTCARENOTE ---
Repeat x-ray while chest tube on -10 suction, remains to -10 suction. Pt remains SR with HR 70. BP 148/88 MAP 103. Pt's pain controlled at this time.
[2025-03-06] MEDS: TORADOL 15 MG IV (20:22)
--- NOTE | 2025-03-06 20:30 | PTCARENOTE ---
assumed care of patient at 1900. Patient OOB to chair, SR on monitor, 94% on RA, patient states has pain 7/10 at chest tube site, PRN toradol given and Flexeril. Ambulated in room, voiding with out issue, bowel sounds present, passing gas, BM this
evening. back to bed, [facility] bath completed.
[2025-03-07] VITALS (9 sets, daily range): BP systolic 84–158; BP diastolic 50–85; BMI 32.9
--- NOTE | 2025-03-07 | PTCARENOTE ---
patient sleeping,vital signs stable.
--- NOTE | 2025-03-07 02:03 | W.PN.CT ---
Today's Communication / Plan
-
-pod #4
-had increased PTX on water seal trial on 03/06 - CT is back on -10 suction
-R CT @ -10 suction with +1 air leak with expiration
-follow CXR
-encourage IS
Assessment / Plan
-
- S/P Robotic assisted thoracic surgery [RATS]/ Right upper lobectomy with partial wedge of the right middle lobe using electrocautery as it was adherent to the right upper lobe mass/Radical lymph node dissection/Regional block by anesthesia, by
Dorado, 03/03/25, pod#4
1. Right upper lobe adenocarcinoma
2. Ocular aneurysm
3. Thyroid nodules
4. Osteoporosis
5. Colonic polyps
6. Rotator cuff tear, awaiting surgery
7. Hypertension
8. Diabetic
9. Pancreatic cyst
10. GERD
11. PUD
12. Skin cancer status post resection
13. Class 1 obesity (BMI 33)
- Acute postop small-mod R PTX with small amount right supraclavicular subcutaneous emphysema
- Preoperative urine culture from 03/03 reported back on 03/06 shows E. Faecalis (>100,000k) UTI. Patient started on Macrobid 100 mg twice daily x 3 days on 03/06/25
Discussed patient care with: Nursing and Care Team
Subjective
-
Date of Service: March 07, 2025
Objective Data
-
Lab Results
03/04/25 03:49
03/06/25 05:18
PT 13.5 Sec (11.4-14.6) 02/20/25 12:46
INR 0.98 02/20/25 12:46
Vital Signs
Vital Signs
Temp Pulse Resp BP Pulse Ox
97.6 F 73 18 119/68 94
03/06/25 20:02 03/06/25 21:00 03/06/25 20:02 03/06/25 20:04 03/06/25 21:17
CT Intake/Output/Weight
03/06/25 03/06/25 03/07/25
06:59 18:59 06:59
Intake Total 220 / 220
Output Total 870 / 3085 1000 / 1150 150 / 1150
Balance -870 / -3085 -1000 / -930 70 / -930
SaO2: 94
Physical Exam
-
General: Awake and AOx3
Cardiovascular: Regular rate & rhythm, No Murmurs and No Rub
Respiratory: Other (crackles on R)
Sternum: Stable
Incision: Clean, Dry and Dressing Intact
Extremities: Other (trace edema b/l)
Data Reviewed
-
Lab Results: Results Reviewed
Medications: Active Meds Reviewed
Chest X-Ray: Report Reviewed and Image Reviewed
ECG: Report Reviewed and Image Reviewed
[2025-03-07] MEDS: HEPARIN 5000 UNITS SC ×3 (02:52→18:29)
--- NOTE | 2025-03-07 04:32 | PTCARENOTE ---
patient resting comfortablily, denies pain at this time, VSS
[2025-03-07] MEDS: TYLENOL 1000 MG PO ×2 (06:15→18:29)
--- NOTE | 2025-03-07 08:00 | PTCARENOTE ---
resumed care of patient from previous RN. Walking rounds completed. Patient OOB to chair at time of assessment. NSR on monitor HR 70s, 96% on RA. CT to heimlich valve and leg bag. for follow up xray + bowel sounds. + BM today. BRP. ambulating in
room with min effort. will continue to monitor.
[2025-03-07] MEDS: LIDOCAINE 4% PATCH 1 PATCH TOPICAL (08:25)
[2025-03-07] MEDS: LOPRESSOR 12.5 MG PO ×2 (08:26→20:46)
[2025-03-07] MEDS: MACROBID 100 MG PO ×2 (08:27→20:46)
[2025-03-07] MEDS: SENOKOT 8.6 MG PO (08:27)
[2025-03-07] MEDS: VITAMIN D3 (cholecalciferol) 125 MCG PO (08:28)
[2025-03-07] MEDS: NEURONTIN 100 MG PO ×3 (08:28→21:55)
[2025-03-07] MEDS: MIRALAX 17 GRAMS PO (08:28)
[2025-03-07] MEDS: VITAMIN C 500 MG PO (08:28)
--- NOTE | 2025-03-07 15:18 | CM ---
Chart reviewed. Patient is independent of ADLS, lives alone in a 2 STH, 0 JOSH, 0 DME. Patient unsure if her neighbor will be able to pick her up at discharge if she goes home over the weekend Patient may need Lyft set up to go home. Plan is
for the patient to return home with CT Transitional RN
[2025-03-07] MEDS: OCEAN, SALINE MIST 2 SPRAYS NASAL (18:33)
--- NOTE | 2025-03-07 19:20 | PTCARENOTE ---
Patient received from RN @1900. Patient sitting in chair comfortably w/ call burk in reach. AOx3. NSR on monitor. BP 134/54 HR 80. Heart sounds audible. Radial and pedal pulses present. No edema noted. POX 93% RA. IS 1000. Left lung
diminished in bases. Right upper lung absent w/ mid lung diminished. 1x right lateral pleural chest tube set to -10 suction draining serosanguineous fluid. +[address] noted on [address]. Nasal congestion noted. Bowel sounds normoactive. Voiding
clear yellow urine. 3 Right lateral incisions well approximated MARCELO. Ecchymosis noted around right lateral incisions. CT dressing C/D/I. Left AC removed due to leaking. VAT team contacted for new PIV. See worklist for more details.
[2025-03-07] MEDS: SENOKOT PO (20:54)
[2025-03-07] MEDS: REMOVE LIDOCAINE PATCH 1 PATCH REMOVE (20:54)
[2025-03-07] MEDS: TYLENOL PO (21:47)
--- NOTE | 2025-03-07 22:21 | PTCARENOTE ---
Patient complaining of head congestion. Patient reassessed. Crepitus noted in right neck and face. POX 92% RA. CT PA Ed notified.
--- NOTE | 2025-03-07 23:25 | PTCARENOTE ---
Patient reassessed. NSR BP 108/52 HR 86 POX 94% RA
[2025-03-07] MEDS: MELATONIN 5 MG PO (23:32)
[2025-03-08] MEDS: HEPARIN 5000 UNITS SC ×3 (00:53→16:11)
[2025-03-08 04:00] VITALS: BP 133/59
[2025-03-08 04:22] VITALS: BMI 32.7
[2025-03-08 04:22] LABS: Hematocrit 35.7 % (37.0-47.0); Hemoglobin 12.3 g/dL (12.0-16.0); Mean Corp Hgb Conc. 34.5 g/dL (33.0-37.0); Mean Corpuscular Volume 87.3 fL (81.0-99.0); Platelet Count 250 10^3/uL (130-400); Red Cell Dist. Width 14.9 % (11.5-14.5)
[2025-03-08 04:43] LABS: Blood Urea Nitrogen 16 mg/dl (7-17); Calcium 8.9 mg/dl (8.4-10.2); Carbon Dioxide 29 mmol/L (22-30); Chloride 102 mmol/L (98-107); Estimated Creatinine Clearance 63 ml/min; Glucose 156 mg/dl (70-99); Potassium 4.3 mmol/L (3.5-5.1); Sodium 135 mmol/L (135-145); eGFR > 60.00
--- NOTE | 2025-03-08 05:43 | W.PN.CT ---
Addendum entered and electronically signed by Fritz Boucher MD 03/08/25 09:05:
I saw and examined the patient.
The PA's note was reviewed and I agree with the note.
Comment:
OZZYJany NICHOLAS [id number]
POD#5 s/p RULobectomy, RML wedge
No major overnight events. + intermittent airleak on -[id number] suction. ? hoarse voice overnight - resolved this AM
CXR with scant apical PTX, no effusions, subcutaneous empysema significantly improved
- Maintain CT to -10 suction
- Daily CXR
- OOB/IS
Original Note:
Today's Communication / Plan
-
Plan:
-No major issues overnight
-Noted to have hoarse voice, likely from SQ emphysema (+crepitus on right hemithorax, right shoulder, right neck and face)
-Did not tolerate chest tube to Heimlich valve yesterday
-Chest tube currently to -10 cmh2o wall suction, with 1+ intermittent air leak, drained 30/60
-CXR this AM with persistent right apical ptx on my review, SQ air has improved from yesterday to my eyes, f/u official cxr report
-Avoid NSAID d/t it's anti-inflammatory effect which may inhibit resolution of ptx, I D/C'd Toradol
-On Macrobid for UTI (Enterococcus faecalis)
-OOB into chair/Ambulate on suction
Assessment / Plan
-
- S/P Robotic assisted thoracic surgery [RATS]/ Right upper lobectomy with partial wedge of the right middle lobe using electrocautery as it was adherent to the right upper lobe mass/Radical lymph node dissection/Regional block by anesthesia, by
Ave, 03/03/25, pod#5
1. Right upper lobe adenocarcinoma
2. Ocular aneurysm
3. Thyroid nodules
4. Osteoporosis
5. Colonic polyps
6. Rotator cuff tear, awaiting surgery
7. Hypertension
8. Diabetic
9. Pancreatic cyst
10. GERD
11. PUD
12. Skin cancer status post resection
13. Class 1 obesity (BMI 33)
- Acute postop small-mod R PTX with small amount right supraclavicular subcutaneous emphysema
- Preoperative urine culture from 03/03 reported back on 03/06 shows E. Faecalis (>100,000k) UTI. Patient started on Macrobid 100 mg twice daily x 3 days on 03/06/25
Discussed patient care with: Cardiology, Nursing, Respiratory Therapy, Pharmacy and Care Team
Subjective
-
Date of Service: March 08, 2025
Pt c/o hoarse voice, likely from SQ emphysema, otherwise feels well
Objective Data
-
Lab Results
03/08/25 03:57
03/08/25 03:57
PT 13.5 Sec (11.4-14.6) 02/20/25 12:46
INR 0.98 02/20/25 12:46
Vital Signs
Vital Signs
Temp Pulse Resp BP Pulse Ox
98.4 F 65 16 133/59 97
03/08/25 04:02 03/08/25 04:00 03/08/25 04:02 03/08/25 04:00 03/08/25 04:02
CT Intake/Output/Weight
03/07/25 03/07/25 03/08/25
06:59 18:59 06:59
Intake Total 220 / 220
Output Total 525 / 1525 930 / 2135 1205 / 2135
Balance -305 / -1305 -930 / -2135 -1205 / -2135
SaO2: 97 (RA)
Physical Exam
-
General: Awake, Oriented and AOx3
Cardiovascular: Regular rate & rhythm, No Murmurs, No Rub and No Gallop
Respiratory: Decreased Breath Sounds (on right, otherwise clear)
Sternum: Stable
Incision: Clean, Dry, Intact and Dressing Intact
Extremities: No Edema
Data Reviewed
-
Lab Results: Results Reviewed
Medications: Active Meds Reviewed
Chest X-Ray: Report Reviewed and Image Reviewed
CT Scan: Report Reviewed and Image Reviewed
ECG: Report Reviewed and Image Reviewed
[2025-03-08] MEDS: TYLENOL 1000 MG PO ×3 (06:15→22:04)
[2025-03-08 07:14] VITALS: BP 142/69
[2025-03-08] MEDS: MACROBID 100 MG PO ×2 (08:57→19:48)
[2025-03-08] MEDS: VITAMIN D3 (cholecalciferol) 125 MCG PO (08:57)
[2025-03-08] MEDS: LOPRESSOR 12.5 MG PO ×2 (08:57→19:48)
[2025-03-08] MEDS: NEURONTIN 100 MG PO ×3 (08:57→22:05)
[2025-03-08] MEDS: VITAMIN C 500 MG PO (08:57)
[2025-03-08] MEDS: LIDOCAINE 4% PATCH 1 PATCH TOPICAL (08:58)
[2025-03-08] MEDS: MIRALAX PO (09:11)
[2025-03-08] MEDS: SENOKOT PO ×2 (09:11→19:12)
--- NOTE | 2025-03-08 09:38 | PTCARENOTE ---
assumed care of pt from previous shift RN, sinus rhythm on tele, VSS, + peripheral pulses, no edema noted. pt denies SOB, pox 96% on RA. +bs, tolerating PO intake, voids spontaneously. PIV flushes easily. CT w minimal amount of drainage, +1 air
leak, + crepitus. Plan of care reviewed w the pt and questions encouraged.
[2025-03-08 12:45] VITALS: BP 153/82
[2025-03-08 16:15] VITALS: BP 141/62
[2025-03-08] MEDS: ZOFRAN 4 MG IV (19:31)
[2025-03-08 19:48] VITALS: BP 147/69
[2025-03-08] MEDS: REMOVE LIDOCAINE PATCH 1 PATCH REMOVE (19:57)
--- NOTE | 2025-03-08 20:00 | PTCARENOTE ---
Patient recieved from RN @1900. Patient sitting in chair comfortably w/ call burk in reach. AOx3. NSR on monitor. BP 147/66 HR 74. Heart sounds audible. Radial and pedal pulses present. No edema noted. POX 93% RA. IS 2500. lungs diminished
in bases. 1x right lateral pleural chest tube set to -10 suction draining serosanguineous fluid. +1 air leak and crepitus on right neck noted. Bowel sounds normoactive. 1 brief episode of emesis noted. Zofran given for nausea. Voiding clear
yellow urine. 3 Right lateral incisions well approximated MARCELO. Ecchymosis noted around incisions. CT dressing soiled. CT dressing cleansed w/ CHG and changed. Right wrist PIV patent and intact. See worklist for more details.
[2025-03-08] MEDS: REGLAN 10 MG IV (22:26)
[2025-03-09] VITALS (8 sets, daily range): BP systolic 119–145; BP diastolic 57–81; BMI 32.3
--- NOTE | 2025-03-09 00:04 | PTCARENOTE ---
Patient reassessed. NSR BP 119/57 HR 74 POX 96% 2L NC.
[2025-03-09] MEDS: HEPARIN 5000 UNITS SC ×3 (00:14→15:45)
--- NOTE | 2025-03-09 04:31 | W.PN.CT ---
Addendum entered and electronically signed by Fritz Boucher MD 03/09/25 08:46:
I saw and examined the patient.
The PA's note was reviewed and I agree with the note.
Comment:
POD#7
CXR w/ slightly increased PTX w/ stable subcutaneous empysema - continued forced expiratory air leak - CT placed to -[id number] suction at 7AM
- Check repeat CXR at noon
- OOB/IS
- Maintain CT
Original Note:
Today's Communication / Plan
-
Plan:
-No major issues overnight
-Noted to have hoarse voice, likely from SQ emphysema (+crepitus on right hemithorax, right shoulder, right neck and face), improved
-Did not tolerate chest tube to Heimlich valve on 03/07
-Chest tube currently to -10 cmh2o wall suction (consider increase suction to -15/-20), with 1+ intermittent air leak, drained 80/130
-CXR this AM with unchanged right apical ptx on my review, SQ air has improved from yesterday to my eyes, f/u official cxr report
-Avoid NSAID d/t it's anti-inflammatory effect which may inhibit resolution of ptx, D/C'd Toradol
-Completed Macrobid yesterday 03/08 for UTI (Enterococcus faecalis)
-OOB into chair/Ambulate on suction
Assessment / Plan
-
- S/P Robotic assisted thoracic surgery [RATS]/ Right upper lobectomy with partial wedge of the right middle lobe using electrocautery as it was adherent to the right upper lobe mass/Radical lymph node dissection/Regional block by anesthesia, by
Ave, 03/03/25, pod#6
1. Right upper lobe adenocarcinoma
2. Ocular aneurysm
3. Thyroid nodules
4. Osteoporosis
5. Colonic polyps
6. Rotator cuff tear, awaiting surgery
7. Hypertension
8. Diabetic
9. Pancreatic cyst
10. GERD
11. PUD
12. Skin cancer status post resection
13. Class 1 obesity (BMI 33)
- Acute postop small-mod R PTX with small amount right supraclavicular subcutaneous emphysema
- Preoperative urine culture from 03/03 reported back on 03/06 shows E. Faecalis (>100,000k) UTI. Patient started on Macrobid 100 mg twice daily x 3 days on 03/06/25
Discussed patient care with: Cardiology, Nursing, Respiratory Therapy, Pharmacy and Care Team
Subjective
-
Date of Service: March 09, 2025
Pt c/o pleuritic chest pain, otherwise feels well, hoarse voice improved
Objective Data
-
Lab Results
03/08/25 03:57
03/08/25 03:57
PT 13.5 Sec (11.4-14.6) 02/20/25 12:46
INR 0.98 02/20/25 12:46
Vital Signs
Vital Signs
Temp Pulse Resp BP Pulse Ox
98 F 63 17 119/57 96
03/09/25 00:03 03/09/25 00:01 03/09/25 00:03 03/09/25 00:01 03/09/25 00:03
CT Intake/Output/Weight
03/08/25 03/08/25 03/09/25
06:59 18:59 06:59
Output Total 1205 / 2135 1350 / 1855 505 / 1855
Balance -1205 / -2135 -1350 / -1855 -505 / -1855
SaO2: 96 (RA)
Physical Exam
-
General: Awake, Oriented and AOx3
Cardiovascular: Regular rate & rhythm, No Murmurs, No Rub and No Gallop
Respiratory: Decreased Breath Sounds (on right, otherwise clear)
Sternum: Stable
Incision: Clean, Dry, Intact and Dressing Intact
Extremities: No Edema
Data Reviewed
-
Lab Results: Results Reviewed
Medications: Active Meds Reviewed
Chest X-Ray: Report Reviewed and Image Reviewed
ECG: Report Reviewed and Image Reviewed
--- NOTE | 2025-03-09 04:38 | PTCARENOTE ---
Patient reassessed. NSR BP 132/60 HR 62 POX 96% 2L NC.
[2025-03-09] MEDS: TYLENOL 1000 MG PO ×2 (05:23→15:45)
[2025-03-09] MEDS: MACROBID 100 MG PO ×2 (07:57→19:27)
[2025-03-09] MEDS: LOPRESSOR 12.5 MG PO ×2 (07:57→19:26)
[2025-03-09] MEDS: NEURONTIN 100 MG PO ×2 (07:57→15:45)
[2025-03-09] MEDS: VITAMIN D3 (cholecalciferol) 125 MCG PO (07:57)
[2025-03-09] MEDS: VITAMIN C 500 MG PO (07:58)
[2025-03-09] MEDS: ULTRAM 50 MG PO ×2 (07:58→19:27)
[2025-03-09] MEDS: FLEXERIL 5 MG PO ×2 (07:59→19:27)
[2025-03-09] MEDS: DILAUDID 0.25 MG IV (08:00)
[2025-03-09] MEDS: LIDOCAINE 4% PATCH 1 PATCH TOPICAL (08:53)
[2025-03-09] MEDS: MIRALAX PO (08:53)
[2025-03-09] MEDS: SENOKOT PO (08:55)
--- NOTE | 2025-03-09 09:31 | PTCARENOTE ---
assumed care of pt from previous shift RN, sinus rhythm on tele, VSS, + peripheral pulses, no edema noted. pt denies SOB, pox 96% on RA. +bs, tolerating PO intake, voids spontaneously. PIV flushes easily. CT w minimal amount of drainage, +1 air
leak, + crepitus. Suction increased from -10 to -20. Pt reports increased pain. Medicated for pain as ordered. Dr. Boucher and CT VALERIE at bedside, plan of care reviewed w the pt and questions encouraged.
--- NOTE | 2025-03-09 12:29 | PTCARENOTE ---
pain better controlled, VSS.
[2025-03-09] MEDS: REMOVE LIDOCAINE PATCH 1 PATCH REMOVE (20:00)
--- NOTE | 2025-03-09 20:00 | PTCARENOTE ---
Assumed care of pt at 1900, Patient is alert and Oriented, pain 7/10, PRN medications given to control pain as ordered. BP stable, sinus rhythm on tele, VSS, + peripheral pulses, no edema noted. Lungs sounds diminished, pt denies SOB, pox 98% on
RA. +bs, tolerating dinner, voids spontaneously. PIV flushes WNL. CT has yellow drainage, +1 air leak. Wall suction at -20. ambulating in room. see workflow for more detail assessment findings
[2025-03-10] VITALS (11 sets, daily range): BP systolic 112–155; BP diastolic 51–113; BMI 32.3
--- NOTE | 2025-03-10 00:39 | PTCARENOTE ---
patient resting, pain is controlled, VSS.
--- NOTE | 2025-03-10 04:50 | W.PN.CT ---
Today's Communication / Plan
-
Plan:
-No major issues overnight
-Noted to have hoarse voice (resolved), likely from SQ emphysema (+crepitus on right hemithorax, right shoulder, right neck and face has improved)
-Did not tolerate chest tube to Heimlich valve on 03/07
-Chest tube suction increased from -10 to -20 cmh2o wall suction yesterday 03/09 with improved right apical ptx. Chest tube with 1+ intermittent air leak, drained 80/130
-CXR this AM shows improved right apical ptx and SQ emphysema on my assessment, f/u official cxr report
-Avoid NSAID d/t it's anti-inflammatory effect which may inhibit resolution of ptx, D/C'd Toradol
-Completed Macrobid 03/08 for UTI (Enterococcus faecalis)
-OOB into chair/Ambulate on suction
Assessment / Plan
-
- S/P Robotic assisted thoracic surgery [RATS]/ Right upper lobectomy with partial wedge of the right middle lobe using electrocautery as it was adherent to the right upper lobe mass/Radical lymph node dissection/Regional block by anesthesia, by
Ave, 03/03/25, pod#7
1. Right upper lobe adenocarcinoma
2. Ocular aneurysm
3. Thyroid nodules
4. Osteoporosis
5. Colonic polyps
6. Rotator cuff tear, awaiting surgery
7. Hypertension
8. Diabetic
9. Pancreatic cyst
10. GERD
11. PUD
12. Skin cancer status post resection
13. Class 1 obesity (BMI 33)
- Acute postop small-mod R PTX with small amount right supraclavicular subcutaneous emphysema
- Preoperative urine culture from 03/03 reported back on 03/06 shows E. Faecalis (>100,000k) UTI. Patient started on Macrobid 100 mg twice daily x 3 days on 03/06/25
Discussed patient care with: Cardiology, Nursing, Respiratory Therapy, Pharmacy and Care Team
Subjective
-
Date of Service: March 10, 2025
Pt c/o pleuritic chest pain, otherwise feels well. Hoarse voice has improved
Objective Data
-
Lab Results
03/08/25 03:57
03/08/25 03:57
PT 13.5 Sec (11.4-14.6) 02/20/25 12:46
INR 0.98 02/20/25 12:46
Vital Signs
Vital Signs
Temp Pulse Resp BP Pulse Ox
98 F 65 18 112/51 97
03/09/25 21:29 03/10/25 03:00 03/09/25 19:42 03/10/25 01:56 03/10/25 02:00
CT Intake/Output/Weight
03/09/25 03/09/25 03/10/25
06:59 18:59 06:59
Intake Total 100 / 220 120 / 220
Output Total 730 / 2080 610 / 810 200 / 810
Balance -730 / -2080 -510 / -590 -80 / -590
SaO2: 97 (2L)
Physical Exam
-
General: Awake, Oriented and AOx3
Cardiovascular: Regular rate & rhythm, No Murmurs, No Rub and No Gallop
Respiratory: Decreased Breath Sounds (at right, otherwise clear)
Sternum: Stable
Incision: Clean, Dry, Intact and Dressing Intact
Extremities: No Edema
Data Reviewed
-
Lab Results: Results Reviewed
Medications: Active Meds Reviewed
Chest X-Ray: Report Reviewed and Image Reviewed
ECG: Report Reviewed and Image Reviewed
--- NOTE | 2025-03-10 05:40 | PTCARENOTE ---
patient OOB to chair, Abdominal binder placed on patient. CT draining yellow straw colored drainage. On RA 93%,
[2025-03-10] MEDS: SENOKOT PO (06:30)
[2025-03-10] MEDS: NEURONTIN PO (06:31)
[2025-03-10] MEDS: TYLENOL PO ×6 (06:31→21:02)
[2025-03-10] MEDS: HEPARIN 5000 UNITS SC ×3 (06:33→23:40)
[2025-03-10] MEDS: HEPARIN SC (06:35)
--- NOTE | 2025-03-10 07:45 | PTCARENOTE ---
Assumed care of patient. Walking rounds completed with previous RN. Pt assessed while she was lying in bed. Pt alert and oriented x4. Pt rates 'discomfort' 5/10 but refuses oral pain meds due to feeling 'out of it'. C/o reflux, and stomach feeling
'upset'. See MAR. NSR on tele with rates in the 70s. BP 141/65. Bilateral radial pulses weakly palpable. Bilateral DP pulses present via doppler. No edema noted. POX 96% on RA. Lungs diminished in the bases. Occasional dry, nonproductive cough.
Right pleural chest tube to -20cm suction draining straw fluid. output WNL. +1 continuous air leak. Crepitus above chest tube insertion site. Abdominal binder intact. IS encouraged-1750mL achieved. Abdomen soft, round, nontender. +BS. Pt voiding
adequate amounts of clear yellow urine in the toilet. Right back/lateral chest surgical sites approximated with skin glue, [employer]ER. CT dressing CDI. Right hand 20g PIV intact. See MAR for medication administration. See worklist for complete nursing
assessment. Plan of care reviewed and patient in agreement.
[2025-03-10] MEDS: SENOKOT 8.6 MG PO ×2 (08:13→19:15)
[2025-03-10] MEDS: REGLAN 10 MG IV (08:13)
[2025-03-10] MEDS: VITAMIN D3 (cholecalciferol) 125 MCG PO (08:14)
[2025-03-10] MEDS: LOPRESSOR 12.5 MG PO ×2 (08:14→19:15)
[2025-03-10] MEDS: VITAMIN C 500 MG PO (08:14)
[2025-03-10] MEDS: MIRALAX PO (08:14)
[2025-03-10] MEDS: LIDOCAINE 4% PATCH 1 PATCH TOPICAL (08:14)
--- NOTE | 2025-03-10 12:12 | PTCARENOTE ---
Pt reassessed. 1 assist to get OOB to bathroom and then to chair. Pt tolerated. SR on tele with rates in the 70s. BP 145/72. POX 92% on RA. Surgical sites stable. Crepitus and air leak unchanged. Pt voiding adequate amounts of clear yellow urine. CT
output WNL. No other acute changes.
--- NOTE | 2025-03-10 15:24 | CM ---
CM following for DC planning needs.
Reviewed initial assessment. Pt. resides alone in a private, [facility].
She is functionally indep. at baseline w/ ADLs, mobility without the use of any assisted device.
Antic. DC plan is for home w/ CT Transitional Care RN. CM to follow.
--- NOTE | 2025-03-10 16:52 | PTCARENOTE ---
Pt reassessed. NSR with rates in the 80s-90s. BP 139/62. POX 93% on RA. +Crepitus +Air leak. CT remains to -20suction draining small amount of straw colored fluid. No acute changes.
[2025-03-10] MEDS: TYLENOL 650 MG PO (18:03)
--- NOTE | 2025-03-10 19:00 | PTCARENOTE ---
report received from previous RN, walking rounds done. pt in chair, AAOx4. pt reports pain is tolerable at this time. VSS. NSR on monitor, HR 70s. POX 96% on RA. R pleural chest tube intact to -20cm suction, draining straw fluid, drainage WNL, +1
continuous air leak present, crepitus present above chest tube insertion site. abdominal binder intact. IS encouraged. +BS. voiding in toilet without difficulty. surgical sites stable. PIV intact and patent. see worklist for full assessment, VS, and
interventions.
[2025-03-10] MEDS: REMOVE LIDOCAINE PATCH 1 PATCH REMOVE (19:15)
[2025-03-10] MEDS: ULTRAM 50 MG PO (21:02)
--- NOTE | 2025-03-11 04:47 | W.PN.CT ---
Today's Communication / Plan
-
Plan:
-No major issues overnight
-Did not tolerate chest tube to Heimlich valve on 03/07
-Chest tube suction increased from -10 to -20 cmh2o wall suction on 03/09 with improved right apical ptx. Chest tube with 1+ intermittent air leak, drained 80/130
-CXR this AM shows slightly improved right apical ptx and SQ emphysema on my assessment, f/u official cxr report
-Avoid NSAID d/t it's anti-inflammatory effect which may inhibit resolution of ptx, D/C'd Toradol
-Completed Macrobid 03/08 for UTI (Enterococcus faecalis)
-OOB into chair/Ambulate on suction
Assessment / Plan
-
- S/P Robotic assisted thoracic surgery [RATS]/ Right upper lobectomy with partial wedge of the right middle lobe using electrocautery as it was adherent to the right upper lobe mass/Radical lymph node dissection/Regional block by anesthesia, by
Dorado, 03/03/25, pod#8
1. Right upper lobe adenocarcinoma
2. Ocular aneurysm
3. Thyroid nodules
4. Osteoporosis
5. Colonic polyps
6. Rotator cuff tear, awaiting surgery
7. Hypertension
8. Diabetic
9. Pancreatic cyst
10. GERD
11. PUD
12. Skin cancer status post resection
13. Class 1 obesity (BMI 33)
- Acute postop small-mod R PTX with subcutaneous emphysema
- Preoperative urine culture from 03/03 reported back on 03/06 shows E. Faecalis (>100,000k) UTI. Patient started on Macrobid 100 mg twice daily x 3 days on 03/06/25
Discussed patient care with: Cardiology, Nursing, Respiratory Therapy, Pharmacy and Care Team
Subjective
-
Date of Service: March 11, 2025
Pt offers no complaints
Objective Data
-
Lab Results
03/08/25 03:57
03/08/25 03:57
PT 13.5 Sec (11.4-14.6) 02/20/25 12:46
INR 0.98 02/20/25 12:46
Vital Signs
Vital Signs
Temp Pulse Resp BP Pulse Ox
98.0 F 84 18 138/70 96
03/10/25 19:25 03/10/25 19:30 03/10/25 19:25 03/10/25 19:25 03/10/25 20:00
CT Intake/Output/Weight
03/10/25 03/10/25 03/11/25
06:59 18:59 06:59
Intake Total 290 / 390 240 / 240
Output Total 500 / 1110 1365 / 1580 215 / 1580
Balance -210 / -720 -1125 / -1340 -215 / -1340
SaO2: 96 (RA)
Physical Exam
-
General: Awake, Oriented and AOx3
Cardiovascular: Regular rate & rhythm, No Murmurs and No Gallop
Respiratory: Decreased Breath Sounds (on right)
Sternum: Stable
Incision: Clean, Dry, Intact and Dressing Intact
Extremities: No Edema
Data Reviewed
-
Lab Results: Results Reviewed
Medications: Active Meds Reviewed
Chest X-Ray: Report Reviewed and Image Reviewed
ECG: Report Reviewed and Image Reviewed
[2025-03-11] MEDS: TYLENOL 1000 MG PO ×2 (05:40→14:48)
[2025-03-11 05:53] VITALS: BMI 32.2
[2025-03-11 05:55] VITALS: BP 155/108
--- NOTE | 2025-03-11 06:00 | PTCARENOTE ---
no changes in assessment, VSS. NSR 70s. POX 97% on room air. CT intact, air leak remains.
[2025-03-11 07:03] VITALS: BP 129/64
[2025-03-11] MEDS: MIRALAX 17 GRAMS PO (08:53)
[2025-03-11] MEDS: LIDOCAINE 4% PATCH 1 PATCH TOPICAL (08:53)
[2025-03-11] MEDS: LOPRESSOR 12.5 MG PO ×2 (08:54→19:45)
[2025-03-11] MEDS: HEPARIN 5000 UNITS SC ×3 (08:54→23:28)
[2025-03-11] MEDS: VITAMIN D3 (cholecalciferol) 125 MCG PO (08:55)
[2025-03-11] MEDS: SENOKOT 8.6 MG PO ×2 (08:55→19:46)
[2025-03-11] MEDS: VITAMIN C 500 MG PO (08:55)
[2025-03-11 11:51] VITALS: BP 153/92
[2025-03-11] MEDS: XYLOCAINE 1% 2 ML INJ (12:58)
[2025-03-11 14:47] VITALS: BP 157/88
--- NOTE | 2025-03-11 15:00 | PTCARENOTE ---
cxr being done bedside post bloodpatch.
--- NOTE | 2025-03-11 19:00 | PTCARENOTE ---
report received from previous RN, walking rounds done. pt in chair, AAOx4. pt reports pain is tolerable at this time. VSS. NSR on monitor, HR 70s. POX 94% on RA. R pleural chest tube intact to -20cm suction, draining serosang fluid, drainage WNL, +1
continuous air leak present, crepitus present above chest tube insertion site. abdominal binder intact. IS encouraged. +BS. voiding in toilet without difficulty. surgical sites stable. PIV intact and patent. see worklist for full assessment, VS, and
interventions.
[2025-03-11] MEDS: REMOVE LIDOCAINE PATCH 1 PATCH REMOVE (19:41)
[2025-03-11 19:47] VITALS: BP 137/71
[2025-03-11] MEDS: TYLENOL PO (22:46)
[2025-03-11 23:32] VITALS: BP 146/76
[2025-03-12 02:48] VITALS: BMI 31.9
--- NOTE | 2025-03-12 03:00 | PTCARENOTE ---
Addendum entered by Maggy Valle RN 03/12/25 03:41:
NSR 60s-70s. POX 94% on room air. +[address] AM labs drawn and sent. pt sleeping between care.
Original Note:
no changes in assessment, VSS. NSR
[2025-03-12 03:03] VITALS: BP 144/67
[2025-03-12 03:15] LABS: Hematocrit 37.6 % (37.0-47.0); Hemoglobin 12.7 g/dL (12.0-16.0); Mean Corp Hgb Conc. 33.8 g/dL (33.0-37.0); Mean Corpuscular Volume 88.7 fL (81.0-99.0); Platelet Count 364 10^3/uL (130-400); Red Cell Dist. Width 15.1 % (11.5-14.5)
[2025-03-12 03:35] LABS: Blood Urea Nitrogen 15 mg/dl (7-17); Calcium 9.3 mg/dl (8.4-10.2); Carbon Dioxide 27 mmol/L (22-30); Chloride 101 mmol/L (98-107); Estimated Creatinine Clearance 54 ml/min; Glucose 151 mg/dl (70-99); Potassium 4.3 mmol/L (3.5-5.1); Sodium 134 mmol/L (135-145); eGFR > 60.00
[2025-03-12] MEDS: TYLENOL 1000 MG PO (05:34)
--- NOTE | 2025-03-12 06:30 | W.PN.CT ---
Today's Communication / Plan
-
Plan:
-No major issues overnight
-Did not tolerate chest tube to Heimlich valve on 03/07
-Chest tube suction increased from -10 to -20 cmh2o wall suction on 03/09 with improved right apical ptx
-Persistent right apical ptx S/p blood patch yesterday 03/[address] Dorado
-Chest tube to -20 cmh20 wall suction with 1+ intermittent air leak, drained
-CXR this AM unchanged compared to last night, right apical ptx and SQ emphysema on my assessment, f/u official cxr report
-Avoid NSAID d/t it's anti-inflammatory effect which may inhibit resolution of ptx, D/C'd Toradol
-Completed Macrobid 03/08 for UTI (Enterococcus faecalis)
-OOB into chair/Ambulate on suction
-Transitioned chest tube to -30 suction this AM per Dr. Dorado, will obtain cxr 2-3hrs
Assessment / Plan
-
- S/P Robotic assisted thoracic surgery [RATS]/ Right upper lobectomy with partial wedge of the right middle lobe using electrocautery as it was adherent to the right upper lobe mass/Radical lymph node dissection/Regional block by anesthesia, by
Ave, 03/03/25, pod#9
1. Right upper lobe adenocarcinoma
2. Ocular aneurysm
3. Thyroid nodules
4. Osteoporosis
5. Colonic polyps
6. Rotator cuff tear, awaiting surgery
7. Hypertension
8. Diabetic
9. Pancreatic cyst
10. GERD
11. PUD
12. Skin cancer status post resection
13. Class 1 obesity (BMI 33)
- Acute postop small-mod R PTX with subcutaneous emphysema
- Preoperative urine culture from 03/03 reported back on 03/06 shows E. Faecalis (>100,000k) UTI. Patient started on Macrobid 100 mg twice daily x 3 days on 03/06/25
- Acute postop persistent right apical ptx S/p blood patch by Dr. Dorado, 03/11
Discussed patient care with: Cardiology, Nursing, Respiratory Therapy, Pharmacy and Care Team
Subjective
-
Date of Service: March 12, 2025
Objective Data
-
Lab Results
03/12/25 02:58
03/12/25 02:58
PT 13.5 Sec (11.4-14.6) 02/20/25 12:46
INR 0.98 02/20/25 12:46
Vital Signs
Vital Signs
Temp Pulse Resp BP Pulse Ox
98.0 F 76 18 144/67 94
03/11/25 23:32 03/12/25 06:00 03/11/25 23:32 03/12/25 03:03 03/12/25 03:00
CT Intake/Output/Weight
03/11/25 03/11/25 03/12/25
06:59 18:59 06:59
Intake Total 250 / 490 480 / 730 250 / 730
Output Total 915 / 2280 905 / 925 20 / 5
Balance -665 / -1790 -425 / -195 230 / -195
SaO2: 94
[2025-03-12 07:31] VITALS: BP 145/77
[2025-03-12] MEDS: MIRALAX 17 GRAMS PO (07:38)
[2025-03-12] MEDS: VITAMIN D3 (cholecalciferol) 125 MCG PO (07:39)
[2025-03-12] MEDS: SENOKOT 8.6 MG PO (07:39)
[2025-03-12] MEDS: LOPRESSOR 12.5 MG PO ×2 (07:39→19:43)
[2025-03-12] MEDS: VITAMIN C 500 MG PO (07:39)
[2025-03-12] MEDS: LIDOCAINE 4% PATCH 1 PATCH TOPICAL (07:39)
[2025-03-12] MEDS: HEPARIN 5000 UNITS SC ×2 (07:41→18:48)
--- NOTE | 2025-03-12 08:00 | PTCARENOTE ---
received from previous RN, walking rounds done. pt in chair, AAOx3. NSR on monitor, HR 70s. 96% on RA. R pleural chest tube intact to -30cm suction, continuous air leak and crepitus present. +BS. brp. surgical sites stable. PIV intact. will continue
to monitor.
--- NOTE | 2025-03-12 10:04 | PTCARENOTE ---
multiple bowel movements today. VSS. tolerating walking.
[2025-03-12 11:16] VITALS: BP 163/74
--- NOTE | 2025-03-12 12:00 | PTCARENOTE ---
remains with intermittent air leak to CT. crepitus in back.
[2025-03-12] MEDS: TYLENOL PO (14:12)
--- NOTE | 2025-03-12 14:16 | CM ---
CM following for DC planning needs.
Met w/ patient at bedside. Patient is POD#9. She reports that she is feeling well, having no issues ambulating around her room.
Reviewed DC plan. Antic. DC to home w/ CT Transitional Care RN.
CM to follow.
[2025-03-12 15:26] VITALS: BP 149/87
[2025-03-12] MEDS: SENOKOT PO (19:30)
[2025-03-12 19:42] VITALS: BP 124/67
[2025-03-12] MEDS: REMOVE LIDOCAINE PATCH 1 PATCH REMOVE (19:43)
--- NOTE | 2025-03-12 20:00 | PTCARENOTE ---
Assumed care of the patient at 1900. Patient OOB to chair, AOx3, pleasant, TREADWELL, neurologically intact. SR on CM, heart tones audible, no edema, pulses palpable. Lungs dim at the bases on RA, R posterior lateral CT with tegaderm intact, +1
intermittent air leak and mild crepitus present at insertion site, R posterior scapular area tender per patient. Voiding in the toilet without difficulty. Per patient, she had multiple BMs during the day, appetite good, no n/v. PIV x2 INT. CHG cloth
bath done, linens changed, pt helped into bed. POC discussed, questions encouraged, assessment of needs ongoing.
[2025-03-13] VITALS (7 sets, daily range): BP systolic 124–160; BP diastolic 61–72; BMI 31.8
--- NOTE | 2025-03-13 | PTCARENOTE ---
Patient sleeping between care, no changes.
[2025-03-13] MEDS: TYLENOL 1000 MG PO ×4 (00:05→21:58)
[2025-03-13] MEDS: HEPARIN 5000 UNITS SC ×3 (00:06→15:07)
--- NOTE | 2025-03-13 03:51 | W.PN.CT ---
Today's Communication / Plan
-
-Did not tolerate chest tube to Heimlich valve on 03/07
-Chest tube suction now at -30
-Pl output 55 cc out in 24 hrs, still with +1 leak this AM
-Persistent right apical ptx S/p blood patch 03/[address] Dorado
-CXR this AM unchanged
-Avoid NSAID d/t it's anti-inflammatory effect which may inhibit resolution of ptx, D/C'd Toradol
-Completed Macrobid 03/08 for UTI (Enterococcus faecalis)
-OOB into chair/Ambulate on suction
Assessment / Plan
-
- S/P Robotic assisted thoracic surgery [RATS]/ Right upper lobectomy with partial wedge of the right middle lobe using electrocautery as it was adherent to the right upper lobe mass/Radical lymph node dissection/Regional block by anesthesia, by
Ave, 03/03/25, pod#10
1. Right upper lobe adenocarcinoma
2. Ocular aneurysm
3. Thyroid nodules
4. Osteoporosis
5. Colonic polyps
6. Rotator cuff tear, awaiting surgery
7. Hypertension
8. Diabetic
9. Pancreatic cyst
10. GERD
11. PUD
12. Skin cancer status post resection
13. Class 1 obesity (BMI 33)
- Acute postop small-mod R PTX with subcutaneous emphysema
- Preoperative urine culture from 03/03 reported back on 03/06 shows E. Faecalis (>100,000k) UTI. Patient started on Macrobid 100 mg twice daily x 3 days on 03/06/25
- Acute postop persistent right apical ptx S/p blood patch by Dr. Dorado, 03/11
Subjective
-
Date of Service: March 13, 2025
Objective Data
-
Lab Results
03/12/25 02:58
03/12/25 02:58
PT 13.5 Sec (11.4-14.6) 02/20/25 12:46
INR 0.98 02/20/25 12:46
Vital Signs
Vital Signs
Temp Pulse Resp BP Pulse Ox
98 F 75 18 153/63 98
03/13/25 00:04 03/13/25 00:10 03/13/25 00:04 03/13/25 00:10 03/13/25 00:10
CT Intake/Output/Weight
03/12/25 03/12/25 03/13/25
06:59 18:59 06:59
Intake Total 250 / 730 240 / 240 0 / 240
Output Total 20 / 925 30 / 30
Balance 230 / -195 240 / 210 -30 / 210
SaO2: 98
Physical Exam
-
General: Awake and Oriented
Cardiovascular: Regular rate & rhythm and Irregular rate & rhythm
Respiratory: Clear and Other (crepitus on R hemithorax)
Sternum: Stable
Extremities: No Edema
Data Reviewed
-
Lab Results: Results Reviewed
Medications: Active Meds Reviewed
Chest X-Ray: Report Reviewed, Image Reviewed and Discussed w/ Radiology
ECG: Report Reviewed
--- NOTE | 2025-03-13 04:26 | PTCARENOTE ---
No acute changes, patient sleeping between care, VSS.
[2025-03-13] MEDS: VITAMIN C 500 MG PO (07:42)
[2025-03-13] MEDS: VITAMIN D3 (cholecalciferol) 125 MCG PO (07:42)
[2025-03-13] MEDS: LOPRESSOR 12.5 MG PO ×2 (07:42→20:32)
[2025-03-13] MEDS: MIRALAX PO (07:43)
[2025-03-13] MEDS: LIDOCAINE 4% PATCH 1 PATCH TOPICAL (07:43)
[2025-03-13] MEDS: SENOKOT 8.6 MG PO (07:43)
--- NOTE | 2025-03-13 08:42 | PTCARENOTE ---
Received pt from night shift supervisor RN; pt AAOx3 and resting comfortably in chair; NSR on monitor and VSS; PIV x2 patent; Lungs diminished; CT x1 to -30 wall suction +1 air leak and crepitus noted; positive bowel sounds; pt voiding yellow urine; palpable
pulses throughout; no edema noted; all surgical sites C/D/I; see nursing documentation for further details.
--- NOTE | 2025-03-13 12:17 | W.PN.UPDATE ---
Update Note
Progress Note Update
Procedure note:
Preprocedure diagnosis:
1.) Status post robotic assisted thoracic surgery via right upper lobectomy with partial wedge of the right middle lobe using electrocautery
2.) Prolonged airleak/chest tube management due to chest tube migrating forward
Postprocedure diagnosis:
Same as the above
Procedure: Chest tube exchange over surgical tube via Salinger technique with a 14 Armenian Thompson pigtail chest tube.
Desciption of procedure: Patient was prepped and draped in sterile fashion. Proper timeout was performed. 15 mL of local lidocaine was used for anesthetic. Chest tube was cut at the proximal portion closest to the skin. Wire was inserted into the
central lumen of the surgical chest tube until resistance was met. Surgical chest tube was then removed. Next 14 Armenian Thompson pigtail chest tube was advanced over guidewire using the Salinger technique. Chest tube was then secured using silk
suture. Site was then cleaned. Proper dressing was applied. All sharps were disposed of in the proper container.
Anesthesia: 15 mL of local lidocaine
Complications: None
Chest tube with +1 intermittent airleak on -30 cm LWS
Postprocedure chest x-ray in process to confirm placement
--- NOTE | 2025-03-13 14:59 | CM ---
CM following for DC planning needs.
Attempted to meet w/ patient at bedside, patient sleeping soundly-did not disturb.
Pt. is POD# 10.
Antic. DC plan is for home w/ CT Transitional Care RN.
CM to cont. to follow.
--- NOTE | 2025-03-13 15:25 | PTCARENOTE ---
Pt reassessment unchanged from previous, vss, ra, nsr, in and out of chair, BRP, RPCT -30 suction, PIV.
--- NOTE | 2025-03-13 20:00 | PTCARENOTE ---
Resumed care of the patient at 1900. Patient in bed, AOx3, TREADWELL. SR on CM, heart tones audible, no edema, pulses palpable. Lungs dim at the bases on RA, R posterior lateral CT with tegaderm intact, +1 air leak, tidaling, and mild crepitus present at
insertion site, R posterior scapular area tender per patient. Voiding in the toilet without difficulty. Appetite good, no n/v, LBM today. PIV x2 INT. POC discussed, assessment of needs ongoing.
[2025-03-13] MEDS: REMOVE LIDOCAINE PATCH 1 PATCH REMOVE (20:33)
[2025-03-13] MEDS: SENOKOT PO (20:33)
[2025-03-14] VITALS (9 sets, daily range): BP systolic 86–154; BP diastolic 53–84; BMI 31.8
--- NOTE | 2025-03-14 | PTCARENOTE ---
No changes, patient sleeping between care, VSS, ambulating to the bathroom PRN.
[2025-03-14] MEDS: HEPARIN 5000 UNITS SC ×3 (00:23→15:00)
--- NOTE | 2025-03-14 04:10 | PTCARENOTE ---
VSS, no change, sleeping between care.
[2025-03-14] MEDS: TYLENOL PO (06:21)
[2025-03-14] MEDS: VITAMIN C 500 MG PO (07:36)
[2025-03-14] MEDS: SENOKOT 8.6 MG PO (07:36)
[2025-03-14] MEDS: LOPRESSOR 12.5 MG PO ×2 (07:36→20:33)
[2025-03-14] MEDS: VITAMIN D3 (cholecalciferol) 125 MCG PO (07:36)
[2025-03-14] MEDS: LIDOCAINE 4% PATCH 1 PATCH TOPICAL (07:37)
--- NOTE | 2025-03-14 08:00 | PTCARENOTE ---
Received pt from shift engineer RN; pt AAOx3 and resting comfortably in chair; NSR on monitor and VSS: Lungs diminished; CT x1 to -15 wall suction, CTPA at bedside and lowered suction from -30 to -15, +1 air leak, crepitus and tidaling noted; positive
bowel sounds; pt voiding yellow urine; palpable pulses throughout; no edema noted; all surgical sites C/D/I; see nursing documentation for further details.
--- NOTE | 2025-03-14 08:23 | W.PN.CT ---
Today's Communication / Plan
-
-pod #11
-R CT was exchanged for pigtail yesterday 03/13. It is on -30 of suction with +1 air leak with breathing (improved from prior)
-CXR appears with slightly increased R PTX and subcut. emphysema. Per Dr. Dorado, decreased suction to -15. Will check CXR at noon
-encourage IS, OOB
Assessment / Plan
-
- S/P Robotic assisted thoracic surgery [RATS]/ Right upper lobectomy with partial wedge of the right middle lobe using electrocautery as it was adherent to the right upper lobe mass/Radical lymph node dissection/Regional block by anesthesia, by
Ave, 03/03/25, pod#11
1. Right upper lobe adenocarcinoma
2. Ocular aneurysm
3. Thyroid nodules
4. Osteoporosis
5. Colonic polyps
6. Rotator cuff tear, awaiting surgery
7. Hypertension
8. Diabetic
9. Pancreatic cyst
10. GERD
11. PUD
12. Skin cancer status post resection
13. Class 1 obesity (BMI 33)
- Acute postop small-mod R PTX with subcutaneous emphysema
- Preoperative urine culture from 03/03 reported back on 03/06 shows E. Faecalis (>100,000k) UTI. Patient started on Macrobid 100 mg twice daily x 3 days on 03/06/25
- Acute postop persistent right apical ptx S/p blood patch by Dr. Dorado, 03/11
Discussed patient care with: Nursing and Care Team
Subjective
-
Date of Service: March 14, 2025
Objective Data
-
Lab Results
03/12/25 02:58
03/12/25 02:58
PT 13.5 Sec (11.4-14.6) 02/20/25 12:46
INR 0.98 02/20/25 12:46
Vital Signs
Vital Signs
Temp Pulse Resp BP Pulse Ox
98.2 F 71 20 118/53 98
03/14/25 07:42 03/14/25 07:36 03/14/25 07:42 03/14/25 07:36 03/14/25 07:42
CT Intake/Output/Weight
03/13/25 03/14/25 03/14/25
18:59 06:59 18:59
Intake Total 240 / 240
Output Total
Balance -20 195 215 / 195
SaO2: 98
Physical Exam
-
General: Awake and AOx3
Cardiovascular: Regular rate & rhythm, No Murmurs and No Rub
Respiratory: Decreased Breath Sounds (Crepitus at R thorax)
Sternum: Stable
Incision: Clean
Extremities: Other (trace edema b/l)
Abdomen: soft, nontender, nondistended, + bowel sounds
Data Reviewed
-
Lab Results: Results Reviewed
Medications: Active Meds Reviewed
Chest X-Ray: Report Reviewed
CT Scan: Report Reviewed
ECG: Report Reviewed
[2025-03-14] MEDS: MIRALAX PO (08:46)
[2025-03-14] MEDS: TYLENOL 1000 MG PO ×2 (11:11→21:46)
--- NOTE | 2025-03-14 13:04 | PTCARENOTE ---
NSR on monitor and VSS; Tylenol given for pain; updated CTNP on pain; pt resting in bed.
[2025-03-14] MEDS: MYLICON 80 MG PO ×2 (14:58→20:34)
--- NOTE | 2025-03-14 16:50 | CM ---
dc plan remains home when medically stable and f/u visit with the ct transitional care nurse after dc
--- NOTE | 2025-03-14 17:01 | PTCARENOTE ---
Assessment unchanged; NSR on monitor and VSS; pt resting comfortably in chair.
[2025-03-14] MEDS: SENOKOT PO (20:00)
[2025-03-14] MEDS: REMOVE LIDOCAINE PATCH 1 PATCH REMOVE (20:33)
--- NOTE | 2025-03-14 21:00 | PTCARENOTE ---
Patient received OOB in chair watching movie. Patient A+A+Ox3. No neurological deficits noted. No c/o headache, dizziness or lightheadedness. Room air. SpO2 94%. Right Pleural Posterior chest tube - +1 Air leak - Suction -15. Dressing intact.
Subcutaneous emphysema palpated over right upper back and right shoulder/neck region. Right lateral surgical incisions intact - Open to air. No c/o SOB. No THOMAS noted. Sinus Rhythm. Heart rate 70-80's. Blood pressure 137/74 (90). Patient with
no c/o chest pain, pressure or discomfort. Abdomen round, obese. Normoactive bowel sounds. +BM. Mylicon 80mg PO for gas pains - Positive relief provided. Voiding without difficulty. Positive, palpable pulses. Patient with no c/o back or
flank pain. Assessment as documented.
[2025-03-14] MEDS: MELATONIN 5 MG PO (21:46)
--- NOTE | 2025-03-14 23:30 | PTCARENOTE ---
Melatonin 5mg PO for sleep. Patient sleeping without difficulty. Assessment as documented.
[2025-03-15] VITALS (8 sets, daily range): BP systolic 137–152; BP diastolic 66–89; PULSE 75; BMI 31.9
[2025-03-15] MEDS: HEPARIN 5000 UNITS SC ×3 (00:39→16:00)
--- NOTE | 2025-03-15 05:30 | PTCARENOTE ---
Patient A+A+Ox3. No neurological deficits noted. Patient assisted to bathroom with minimal assistance. Steady gait. No c/o headache, dizziness or lightheadedness. +BM +Void. Patient given CHG bath and linens changed. Right pleural chest tube
intact. Portable CXR completed. Patient with no c/o pain or discomfort. Standing scale weight 79 kg. Patient back to bed. Assessment/Interventions as documented.
[2025-03-15] MEDS: TYLENOL PO (06:04)
--- NOTE | 2025-03-15 08:10 | W.PN.CT ---
Today's Communication / Plan
-
-pod #12
-no issues overnight
-R CT on -15 sxn, +1 air leak
-CXR today: R PTX appears without change, large amount of subcutaneous emphysema
-encourage IS, OOB
Assessment / Plan
-
- S/P Robotic assisted thoracic surgery [RATS]/ Right upper lobectomy with partial wedge of the right middle lobe using electrocautery as it was adherent to the right upper lobe mass/Radical lymph node dissection/Regional block by anesthesia, by
Ave, 03/03/25, pod#12
1. Right upper lobe adenocarcinoma
2. Ocular aneurysm
3. Thyroid nodules
4. Osteoporosis
5. Colonic polyps
6. Rotator cuff tear, awaiting surgery
7. Hypertension
8. Diabetic
9. Pancreatic cyst
10. GERD
11. PUD
12. Skin cancer status post resection
13. Class 1 obesity (BMI 33)
- Acute postop small-mod R PTX with subcutaneous emphysema
- Preoperative urine culture from 03/03 reported back on 03/06 shows E. Faecalis (>100,000k) UTI. Patient started on Macrobid 100 mg twice daily x 3 days on 03/06/25
- Acute postop persistent right apical ptx S/p blood patch by Dr. Dorado, 03/11
Discussed patient care with: Nursing and Care Team
Subjective
-
Date of Service: March 15, 2025
Objective Data
-
Lab Results
03/12/25 02:58
03/12/25 02:58
PT 13.5 Sec (11.4-14.6) 02/20/25 12:46
INR 0.98 02/20/25 12:46
Vital Signs
Vital Signs
Temp Pulse Resp BP Pulse Ox
96.8 F L 74 14 151/71 97
03/15/25 07:37 03/15/25 08:09 03/15/25 07:37 03/15/25 07:32 03/15/25 08:06
CT Intake/Output/Weight
03/14/25 03/15/25 03/15/25
18:59 06:59 18:59
Intake Total 480 / 720 240 / 720 480 / 480
Output Total 40 / 75 35 / 75
Balance 440 / 645 205 / 645 480 / 480
SaO2: 97
Physical Exam
-
General: Awake and AOx3
Cardiovascular: Regular rate & rhythm, No Murmurs and No Rub
Respiratory: Rhonchi (on R.) and Other (+crepitus at R upper back)
Incision: Clean, Dry and Dressing Intact
Extremities: Other (trace edema b/l)
Abomen: soft, nontender
Data Reviewed
-
Lab Results: Results Reviewed
Medications: Active Meds Reviewed
Chest X-Ray: Report Reviewed and Image Reviewed
ECG: Report Reviewed and Image Reviewed
--- NOTE | 2025-03-15 08:10 | PTCARENOTE ---
Patient received from cleaning specialist resting in bed, AAO x 3, states pain controlled at this time. NSR via cm, SaO2 @ 97% on RA. R lateral procedural sites cdi, no drainage noted. R pleural chest tube to -15cm suction, +1 air leak noted. Patient
assisted oob to bathroom, am care performed independently. Settled to chair. Dr. Dorado and CT team to bedside, patient updated to plan of care for the day, in agreement. See work list for full assessment and interventions performed.
[2025-03-15] MEDS: LOPRESSOR 12.5 MG PO ×2 (09:00→20:13)
[2025-03-15] MEDS: VITAMIN D3 (cholecalciferol) 125 MCG PO (09:04)
[2025-03-15] MEDS: LIDOCAINE 4% PATCH 1 PATCH TOPICAL (09:05)
[2025-03-15] MEDS: VITAMIN C 500 MG PO (09:05)
[2025-03-15] MEDS: SENOKOT PO ×2 (09:07→20:10)
[2025-03-15] MEDS: MIRALAX PO (09:07)
--- NOTE | 2025-03-15 10:29 | PTCARENOTE ---
PCXR obtained, results reviewed by MALATHI Long - advised nursing to place pleurevac to H2O seal. Patient ambulated linda approx 450 feet, tolerated well.
--- NOTE | 2025-03-15 11:41 | PTCARENOTE ---
Obtained noon vitals, pt used bathroom, 10ml out in chest tube, pt AAOx3, lunch ordered
[2025-03-15] MEDS: TYLENOL 1000 MG PO ×2 (13:55→21:21)
--- NOTE | 2025-03-15 16:25 | PTCARENOTE ---
VS obtained, assessment stable. Patient resting comfortably. Repeat pcxr obtained.
--- NOTE | 2025-03-15 19:30 | PTCARENOTE ---
Report received from Myra and Kevin RNs. Walking rounds done. Pt awake, alert, oriented x 4. Speech clear. Equal extremity strength x 4. Pt on room air. Sats 95-96%. BBS present. R post-lateral CT present and to water seal. Intermittent air leak
present, Level +1. Serosanguinous drainage. No c/o dyspnea. SQ air palpated to R upper back, along top of scapula and mildly to posterior R side of neck. Audible heart tones. Pt in SR. Normotensive. For pulse and wound assessments, see flowsheets.
Belly soft, nontender. Normoactive bs x 4. Pt had multiple loose BMs today. had small loose BM at shift change. Stool softener held. Voids clear, yellow urine in toilet. Walks with 1 assist.
C/O Left anterior-lateral lower leg pain with walking and palpation. No redness, edema. No pain to calf. Amanda SERVIN at bedside to see pt. + doppler'ed pulse to L DP and PT. Ongoing plan of care.
[2025-03-15] MEDS: REMOVE LIDOCAINE PATCH 1 PATCH REMOVE (20:10)
[2025-03-15] MEDS: ULTRAM 25 MG PO (21:21)
--- NOTE | 2025-03-15 21:30 | PTCARENOTE ---
Pt c/o feeling discomfort at CT site. Denies dyspnea. SQ air remains unchanged. CT remains intact to water seal. Sats 95-96% on room air. MALATHI Patel at bedside to assess pt. CXR ordered and done. Ultram 25 mg po given for c/o mild pain, along with
scheduled Tylenol. Some drainage see at dressing site. ABD placed below CT dressing per instruction of PA.
[2025-03-16] VITALS (10 sets, daily range): BP systolic 113–141; BP diastolic 56–90; PULSE 75–77; O2SAT 95; BMI 31.7
[2025-03-16] MEDS: HEPARIN 5000 UNITS SC ×3 (01:00→15:50)
--- NOTE | 2025-03-16 01:00 | PTCARENOTE ---
Pt assisted to BR to void clear, yellow urine. Pt weighed on standing scale and helped to back to bed. VS done. Denies dyspnea.
--- NOTE | 2025-03-16 02:00 | PTCARENOTE ---
Pt noted to have transient decreases in O2 sats while asleep. O2 sats down to 80's for seconds while sleeping then back up to 93-94%. 2L/O2 applied at 0155. PA made aware. Sats 99%.
--- NOTE | 2025-03-16 05:39 | PTCARENOTE ---
CT to -10 cm suction at 0415. Binder applied to chest. No air leak seen in CT. Pt helped to BR to void clear, yellow urine. Denies dyspnea. Sats on room air 92%. Pt back to bed. 2L/NC applied. Sats 94%.
--- NOTE | 2025-03-16 06:16 | W.PN.CT ---
Today's Communication / Plan
-
-pod #13
-c/o increased incisional pain at R chest- better with Tylenol and Ultram. Checked CXR: no change in PTX or CT position, slightly increased subcutaneous emphysema
-R CT has been on water seal since 03/15 with intermittent +1 air leak last night (decreased from before) and no air leak noted during sleep. CT was changed back to -10 suction at 4am d/t increased subcut. air
-follow CXR
-encourage IS, OOB
Assessment / Plan
-
- S/P Robotic assisted thoracic surgery [RATS]/ Right upper lobectomy with partial wedge of the right middle lobe using electrocautery as it was adherent to the right upper lobe mass/Radical lymph node dissection/Regional block by anesthesia, by
Ave, 03/03/25, pod#13
1. Right upper lobe adenocarcinoma
2. Ocular aneurysm
3. Thyroid nodules
4. Osteoporosis
5. Colonic polyps
6. Rotator cuff tear, awaiting surgery
7. Hypertension
8. Diabetic
9. Pancreatic cyst
10. GERD
11. PUD
12. Skin cancer status post resection
13. Class 1 obesity (BMI 33)
- Acute postop small-mod R PTX with subcutaneous emphysema
- Preoperative urine culture from 03/03 reported back on 03/06 shows E. Faecalis (>100,000k) UTI. Patient started on Macrobid 100 mg twice daily x 3 days on 03/06/25
- Acute postop persistent right apical ptx S/p blood patch by Dr. Dorado, 03/11
Discussed patient care with: Nursing and Care Team
Subjective
-
Date of Service: March 16, 2025
Objective Data
-
Lab Results
03/12/25 02:58
03/12/25 02:58
PT 13.5 Sec (11.4-14.6) 02/20/25 12:46
INR 0.98 02/20/25 12:46
Vital Signs
Vital Signs
Temp Pulse Resp BP Pulse Ox
97.9 F 67 15 137/66 94
03/15/25 21:59 03/15/25 21:59 03/15/25 21:59 03/15/25 21:59 03/15/25 21:59
CT Intake/Output/Weight
03/15/25 03/15/25 03/16/25
06:59 18:59 06:59
Intake Total 240 / 720 960 / 1310 350 / 1310
Output Total 35 / 75
Balance 205 / 645 950 / 1290 340 / 1290
SaO2: 94
Physical Exam
-
General: Awake and AOx3
Cardiovascular: Regular rate & rhythm, No Murmurs and No Rub
Respiratory: Rhonchi (on R.) and Other (+crepitus at R upper back)
Incision: Clean, Dry and Dressing Intact
Extremities: Other (trace edema b/l)
Abomen: soft, nontender
Data Reviewed
-
Lab Results: Results Reviewed
Medications: Active Meds Reviewed
Chest X-Ray: Report Reviewed and Image Reviewed
ECG: Report Reviewed and Image Reviewed
[2025-03-16] MEDS: TYLENOL 1000 MG PO (06:41)
[2025-03-16] MEDS: SENOKOT PO ×2 (08:03→20:33)
[2025-03-16] MEDS: VITAMIN C 500 MG PO (08:03)
[2025-03-16] MEDS: MIRALAX PO (08:03)
[2025-03-16] MEDS: LOPRESSOR 12.5 MG PO ×2 (08:03→20:32)
[2025-03-16] MEDS: LIDOCAINE 4% PATCH TOPICAL (08:03)
[2025-03-16] MEDS: VITAMIN D3 (cholecalciferol) 125 MCG PO (08:03)
--- NOTE | 2025-03-16 08:20 | PTCARENOTE ---
Patient received from pole peeling machine operator helper resting oob in chair, AAO x 3, states pain controlled at this time. NSR via cm, SaO2 @ 97% on RA. R posterior chest tube to -10cm suction, placed to H2O seal by Dr. Dorado during am rounds. Patient updated to plan of
care for the day, in agreement. See work list for full assessment and interventions performed.
--- NOTE | 2025-03-16 09:05 | W.PN.UPDATE ---
Update Note
Progress Note Update
Chest tube transitioned to a heimlich valve with gravity drainage. Patient tolerated well. Will continue to monitor for clinical changes. May ambulate. May shower. Will start PO Bactrim DS as prophylaxis while the chest tube is in.
[2025-03-16] MEDS: BACTRIM DS 800 MG/160 MG 1 TABLET PO ×2 (11:18→20:32)
--- NOTE | 2025-03-16 11:33 | PTCARENOTE ---
VS obtained, stable. Patient assisted to bathroom. Ambulated in the linda approx 450 feet, tolerated well.
[2025-03-16] MEDS: TYLENOL PO ×2 (14:30→21:56)
--- NOTE | 2025-03-16 15:54 | PTCARENOTE ---
VS obtained, assessment unchanged. Patient ambulatory in room, to bathroom, voided and self care performed. Binder repositioned.
--- NOTE | 2025-03-16 20:00 | PTCARENOTE ---
Report received from AUSTIN Renteria. Walking rounds done. Pt awake, alert, oriented x 4. Speech clear. Equal extremity strength x 4. Pt in SR. Normotensive. Audible heart tones. Right posterior lateral CT to Heimlich valve and leg bag. Pt denies
dyspnea. SQ air, small amount, palpated to R upper back and R post-lat neck. Dressing to R CT changed on dy shift. Tegaderm intact. Some SSG drainage present. Chest binder intact. BBS present. Slightly decreased to B bases. Pt on room air. Sats
94-95%. Belly soft, round, obese. Nontender. Normoactive bs x 4. Pt voids ad aixa in toilet. Urine clear, yellow. No c/o pain. CHG bath given. Ongoing plan of care.
[2025-03-16] MEDS: REMOVE LIDOCAINE PATCH 1 PATCH REMOVE (20:32)
--- NOTE | 2025-03-16 22:15 | PTCARENOTE ---
VS done. Pt to BR to void clear, yellow urine. Assisted back to bed. Refuses Tylenol. Going to sleep for evening. Heimlich valve and bag remain intact.
[2025-03-17] VITALS (12 sets, daily range): BP systolic 109–143; BP diastolic 59–84; PULSE 84–85; O2SAT 95–98; BMI 31.8
--- NOTE | 2025-03-17 00:24 | W.PN.CT ---
Today's Communication / Plan
-
No issues overnight�
Chest tube transitioned to a Heimlich valve with gravity drainage.�
Bactrim started = for drainage around chest tube sight�
Abdominal binder = placed for subcutaneous air�
Small right apical pneumo = Follow CXR, plans for chest tube to remain in at home�
Current Meds (Gabapentin, Lopressor) �
Encourage IS, OOB�
DC Planning�
Assessment / Plan
-
- S/P Robotic assisted thoracic surgery [RATS]/ Right upper lobectomy with partial wedge of the right middle lobe using electrocautery as it was adherent to the right upper lobe mass/Radical lymph node dissection/Regional block by anesthesia, by
Ave, 03/03/25, pod#14
1. Right upper lobe adenocarcinoma
2. Ocular aneurysm
3. Thyroid nodules
4. Osteoporosis
5. Colonic polyps
6. Rotator cuff tear, awaiting surgery
7. Hypertension
8. Diabetic
9. Pancreatic cyst
10. GERD
11. PUD
12. Skin cancer status post resection
13. Class 1 obesity (BMI 33)
- Acute postop small-mod R PTX with subcutaneous emphysema
- Preoperative urine culture from 03/03 reported back on 03/06 shows E. Faecalis (>100,000k) UTI. Patient started on Macrobid 100 mg twice daily x 3 days on 03/06/25
- Acute postop persistent right apical ptx S/p blood patch by Dr. Dorado, 03/11
Subjective
-
Date of Service: March 17, 2025
Objective Data
-
Lab Results
03/12/25 02:58
03/12/25 02:58
PT 13.5 Sec (11.4-14.6) 02/20/25 12:46
INR 0.98 02/20/25 12:46
Vital Signs
Vital Signs
Temp Pulse Resp BP Pulse Ox
97.9 F 73 15 113/56 95
03/16/25 22:10 03/16/25 22:10 03/16/25 22:10 03/16/25 22:10 03/16/25 22:10
CT Intake/Output/Weight
03/16/25 03/16/25 03/17/25
06:59 18:59 06:59
Intake Total 350 / 1310 960 / 960
Output Total
Balance 335 / 1285 960 / 960
SaO2: 95
Physical Exam
-
General: Awake
Cardiovascular: Regular rate & rhythm
Respiratory: Clear and Equal
Sternum: Stable
Incision: Clean, Dry and Intact
Extremities: No Edema
[2025-03-17] MEDS: HEPARIN 5000 UNITS SC ×3 (00:33→15:52)
--- NOTE | 2025-03-17 01:00 | PTCARENOTE ---
Pt to BR to void. Back to bed. Chest binder repositioned. Pt c/o band feeling 'too tight'. VS done. No c/o dyspnea. SQ air remains the same since last assessment. Sats 95% on room air.
--- NOTE | 2025-03-17 05:00 | PTCARENOTE ---
VS done. Sats on room air 96%. Remains in SR, rate 70-90's (90's when awake). R CT intact with Heimlich valve connected to leg bag, draining small amount of serosanguineous drainage. Pt assisted to BR to void clear, yellow urine. Weighed on standing
scale. Helped back to bed. Refused Tylenol due at 0600. Attempting to go back to sleep for now.
[2025-03-17] MEDS: TYLENOL PO ×3 (05:01→21:00)
--- NOTE | 2025-03-17 07:45 | PTCARENOTE ---
Received pt from restaurant shift supervisor RN; pt AAOx3 and resting comfortably in chair; NSR on monitor and VSS: Lungs diminished; CTx1 to Heimlich valve and leg bag draining serosanguineous fluid; positive bowel sounds; pt voiding yellow urine; palpable pulses
throughout; no edema noted; all surgical sites C/D/I; see nursing documentation for further details.
[2025-03-17] MEDS: LOPRESSOR 12.5 MG PO (07:58)
[2025-03-17] MEDS: SENOKOT 8.6 MG PO ×2 (07:58→19:10)
[2025-03-17] MEDS: VITAMIN D3 (cholecalciferol) 125 MCG PO (07:58)
[2025-03-17] MEDS: BACTRIM DS 800 MG/160 MG 1 TABLET PO ×2 (07:58→19:10)
[2025-03-17] MEDS: VITAMIN C 500 MG PO (07:58)
[2025-03-17] MEDS: MIRALAX PO (07:59)
[2025-03-17] MEDS: LIDOCAINE 4% PATCH TOPICAL (07:59)
--- NOTE | 2025-03-17 10:24 | PTCARENOTE ---
Pt working with PT in [facility]; pt had a near syncope episode; pt help back to room with PT, RNs and CTPAs/CTNP; NSR on monitor and VSS; CTNP ordering labs; discharge canceled.
[2025-03-17] MEDS: REGLAN 10 MG IV (10:34)
[2025-03-17 11:06] LABS: Hematocrit 31.3 % (37.0-47.0); Hemoglobin 10.5 g/dL (12.0-16.0); Mean Corp Hgb Conc. 33.5 g/dL (33.0-37.0); Mean Corpuscular Volume 87.7 fL (81.0-99.0); Platelet Count 442 10^3/uL (130-400); Red Cell Dist. Width 14.7 % (11.5-14.5)
[2025-03-17 11:21] LABS: Blood Urea Nitrogen 21 mg/dl (7-17); Calcium 9.1 mg/dl (8.4-10.2); Carbon Dioxide 25 mmol/L (22-30); Chloride 100 mmol/L (98-107); Estimated Creatinine Clearance 43 ml/min; Glucose 128 mg/dl (70-99); Potassium 5.0 mmol/L (3.5-5.1); Sodium 132 mmol/L (135-145); eGFR 56.60
[2025-03-17 12:06] LABS: Nucleated Red Blood Cells % 0 %
--- NOTE | 2025-03-17 12:59 | PTCARENOTE ---
NSR on monitor and VSS; pt dizzy in bathroom, assisted back to chair with RN and VSS; NSR on monitor; updated CTNP; case management in with pt.
--- NOTE | 2025-03-17 16:04 | PTCARENOTE ---
NSR on monitor and VSS; assessment unchanged and pt resting comfortably in chair.
--- NOTE | 2025-03-17 19:00 | PTCARENOTE ---
report received from previous RN, walking rounds done. pt AAOx4, resting comfortably in chair. VSS. ST on monitor, HR 110. POX 98% on room air. CT x1 intact to Heimlich valve and leg bag draining serosanguineous fluid. +BS. voids CYU. all surgical
sites C/D/I. see worklist for full assessment, VS, and interventions.
[2025-03-17] MEDS: LOPRESSOR 25 MG PO (19:10)
[2025-03-17] MEDS: REMOVE LIDOCAINE PATCH 1 PATCH REMOVE (19:10)
[2025-03-18] VITALS (19 sets, daily range): BP systolic 100–147; BP diastolic 49–73; BMI 31.6
[2025-03-18] MEDS: HEPARIN 5000 UNITS SC (00:27)
--- NOTE | 2025-03-18 05:41 | W.PN.CT ---
Today's Communication / Plan
-
Yesterday had a near syncopal episode while ambulating on the stairs- DC held, now planning DC to SNF
PCXR this AM without overt PTX, film more rotated than prior but subq air grossly unchanged
Bactrim started = for drainage around chest tube sight�(last dose 03/24/2025)
Abdominal binder = placed for subcutaneous air�
Small right apical pneumo = Plans for chest tube to remain in at home�with heimlich valve
Current Meds (Gabapentin, Lopressor) �
Encourage IS, OOB�
DC Planning�
Assessment / Plan
-
- S/P Robotic assisted thoracic surgery [RATS]/ Right upper lobectomy with partial wedge of the right middle lobe using electrocautery as it was adherent to the right upper lobe mass/Radical lymph node dissection/Regional block by anesthesia, by
Ave, 03/03/25, pod#15
1. Right upper lobe adenocarcinoma
2. Ocular aneurysm
3. Thyroid nodules
4. Osteoporosis
5. Colonic polyps
6. Rotator cuff tear, awaiting surgery
7. Hypertension
8. Diabetic
9. Pancreatic cyst
10. GERD
11. PUD
12. Skin cancer status post resection
13. Class 1 obesity (BMI 33)
- Acute postop small-mod R PTX with subcutaneous emphysema
- Preoperative urine culture from 03/03 reported back on 03/06 shows E. Faecalis (>100,000k) UTI. Patient started on Macrobid 100 mg twice daily x 3 days on 03/06/25
- Acute postop persistent right apical ptx S/p blood patch by Dr. Dorado, 03/11
Subjective
-
Date of Service: March 18, 2025
Objective Data
-
Lab Results
03/17/25 10:41
03/17/25 10:41
PT 13.5 Sec (11.4-14.6) 02/20/25 12:46
INR 0.98 02/20/25 12:46
Vital Signs
Vital Signs
Temp Pulse Resp BP Pulse Ox
98 F 118 20 146/72 97
03/18/25 04:38 03/18/25 04:38 03/18/25 04:38 03/18/25 04:38 03/18/25 04:38
CT Intake/Output/Weight
03/17/25 03/17/25 03/18/25
06:59 18:59 06:59
Intake Total 480 / 730 250 / 730
Output Total 400 / 400
Balance 80 / 330 250 / 330
SaO2: 97
Physical Exam
-
General: Awake, Oriented and AOx3
Cardiovascular: Regular rate & rhythm, No Murmurs and No Rub
Respiratory: Clear and Equal
Incision: Clean, Dry and Intact
Extremities: No Edema and No Erythema
Data Reviewed
-
Lab Results: Results Reviewed
Medications: Active Meds Reviewed
Chest X-Ray: Report Reviewed and Image Reviewed
ECG: Report Reviewed
[2025-03-18] MEDS: TYLENOL PO (07:10)
[2025-03-18] MEDS: VITAMIN D3 (cholecalciferol) 125 MCG PO (07:37)
[2025-03-18] MEDS: BACTRIM DS 800 MG/160 MG 1 TABLET PO ×2 (07:37→20:14)
[2025-03-18] MEDS: SENOKOT PO (07:37)
[2025-03-18] MEDS: MIRALAX PO (07:37)
[2025-03-18] MEDS: VITAMIN C 500 MG PO (07:37)
[2025-03-18] MEDS: LIDOCAINE 4% PATCH TOPICAL (07:38)
[2025-03-18 08:07] LABS: Hematocrit 27.6 % (37.0-47.0); Hemoglobin 9.3 g/dL (12.0-16.0); Mean Corp Hgb Conc. 33.7 g/dL (33.0-37.0); Mean Corpuscular Volume 88.2 fL (81.0-99.0); Platelet Count 430 10^3/uL (130-400); Red Cell Dist. Width 14.9 % (11.5-14.5)
--- NOTE | 2025-03-18 08:15 | PTCARENOTE ---
Received pt from cage shift manager RN; pt AAOx3 and resting comfortably in chair; Sinus Tachycardia on monitor and VSS: Lungs diminished with fine crackles in right; IS to 1500; CTx1 to Heimlich valve and leg bag draining serosanguineous fluid; positive
bowel sounds; pt voiding yellow urine; palpable pulses throughout; no edema noted; all surgical sites C/D/I; see nursing documentation for further details.
Dr Dorado at bedside- Heparin SQ placed on hold, CBC and BMP ordered and collected; New IV being placed by IV team.
[2025-03-18 08:31] LABS: Blood Urea Nitrogen 42 mg/dl (7-17); Calcium 8.9 mg/dl (8.4-10.2); Carbon Dioxide 25 mmol/L (22-30); Chloride 102 mmol/L (98-107); Estimated Creatinine Clearance 43 ml/min; Glucose 134 mg/dl (70-99); Potassium 5.2 mmol/L (3.5-5.1); Sodium 134 mmol/L (135-145); eGFR 56.60
[2025-03-18] MEDS: LR 250 IV (08:58)
[2025-03-18 09:18] LABS: ALT (SGPT) 15 U/L (0-35); AST (SGOT) 14 U/L (14-36); Lipase 195 U/L (23-300)
[2025-03-18] MEDS: PROTONIX 40 MG PO (09:44)
[2025-03-18] MEDS: LOPRESSOR PO (09:53)
--- NOTE | 2025-03-18 11:21 | PTCARENOTE ---
NSR on monitor and VSS; 1 unit PRBCs infusing per CTNP order; assessment unchanged; pt resting comfortably in bed.
--- NOTE | 2025-03-18 13:42 | PTCARENOTE ---
1 unit PRBC infused without issues; NSR on monitor and VSS.
[2025-03-18] MEDS: MYLICON 80 MG PO (13:57)
[2025-03-18] MEDS: MILK OF MAGNESIA 30 ML PO (14:53)
[2025-03-18] MEDS: LOPRESSOR 25 MG PO ×2 (16:04→22:20)
[2025-03-18] MEDS: MIRALAX 17 GRAMS PO (16:14)
--- NOTE | 2025-03-18 16:17 | PTCARENOTE ---
Sinus Tachycardia on monitor and VSS; updated CTNP on BP and HR give 0800 dose of Lopressor now and give dose of Miralax due to abd xray; assessment unchanged; pt resting comfortably in chair.
--- NOTE | 2025-03-18 19:20 | PTCARENOTE ---
Hematest positive; updated CTNP.
--- NOTE | 2025-03-18 19:34 | W.PN.UPDATE ---
Update Note
Progress Note Update
Patient reported nausea today. Hemoglobin 9.3, trending down from 10.5<12.5. SQ heparin discontinued per discussion with Dr. Dorado and patient transfused 1 PRBC. Oral Protonix initiated. RN reports heme + stool @ 1900. GI consulted. They
recommend n.p.o. after midnight and changing to Protonix infusion. CBC/BMP ordered for the morning. Dr. Dorado updated to events.
--- NOTE | 2025-03-18 19:45 | PTCARENOTE ---
assumed care of pt from previous RN. pt A&Ox4, resting in bed at time of assessment. SR on tele-monitor. POX 97% on RA. CTx1- R lateral heimlich valve draining serosanguineous drainage to leg bag. crepitus palpated in R upper back and R lateral
neck. abd s/n, +BS. + hemoccult stool sample. protonix gtt ordered by CT PA. pt voiding clear, yellow urine. all surgical sites stable, CDI. PIV intact. see worklist for complete nursing assessment, interventions, VS, and I&Os.
[2025-03-18] MEDS: PROTONIX 100 IV (20:14)
[2025-03-18] MEDS: SENOKOT 8.6 MG PO (20:14)
[2025-03-18 21:23] LABS: Urine Character Clear (Clear)
[2025-03-18 21:31] LABS: Urine Red Blood Cell 0-2 /HPF (0-2); Urine White Cell 0-2 /HPF (0-5)
[2025-03-18] MEDS: REMOVE LIDOCAINE PATCH REMOVE (21:47)
--- NOTE | 2025-03-18 23:41 | PTCARENOTE ---
Addendum entered by Vivienne Delcid RN 03/18/25 23:43:
NPO @ 0000 per GI. pt in agreement.
Original Note:
assessment remains unchanged. VSS.
[2025-03-19] VITALS (20 sets, daily range): BP systolic 83–145; BP diastolic 39–86; PULSE 77; O2SAT 98; BMI 31.4
--- NOTE | 2025-03-19 04:00 | PTCARENOTE ---
no acute changes. VSS. AM labs collected by VAT.
--- NOTE | 2025-03-19 04:08 | W.PN.CT ---
Today's Communication / Plan
-
Plan:
-No major issues overnight
-Chest tube has been to Heimlich valve since 03/16
-Discharge on 03/17 postponed d/t near syncopal episode while ambulating stairs with PT/OT
-CXR shows small right apical ptx (unchanged) and SQ emphysema (slightly decreased) to my eyes, f/u official report
-Pt noted to be on emperic Bactrim Ds given ongoing chest tube requirement
-Pt with noted Heme positive stool last night, made NPO, started STAT IV protonix gtt and Daily IV protonix to follow, GI consulted
-Pt was on SQ heparin 5,000 Q8h, which was stopped yesterday 03/18
-Received 1u PRBC yesterday 03/18 for h/h 9.3/27.6, h/h today is 9.4/27.2
-OOB into chair/Ambulate, PT/OT f/u
-Eventual SNF vs acute rehab, per PT
Assessment / Plan
-
- S/P Robotic assisted thoracic surgery [RATS]/ Right upper lobectomy with partial wedge of the right middle lobe using electrocautery as it was adherent to the right upper lobe mass/Radical lymph node dissection/Regional block by anesthesia, by
Dorado, 03/03/25, pod#16
1. Right upper lobe adenocarcinoma
2. Ocular aneurysm
3. Thyroid nodules
4. Osteoporosis
5. Colonic polyps
6. Rotator cuff tear, awaiting surgery
7. Hypertension
8. Diabetic
9. Pancreatic cyst
10. GERD
11. PUD
12. Skin cancer status post resection
13. Class 1 obesity (BMI 33)
- Acute postop small-mod R PTX with subcutaneous emphysema
- Preoperative urine culture from 03/03 reported back on 03/06 shows E. Faecalis (>100,000k) UTI. Patient started on Macrobid 100 mg twice daily x 3 days on 03/06/25
- Acute postop persistent right apical ptx S/p blood patch by Dr. Dorado, 03/11
- Acute postop hyponatremia
- Acute postop near syncope
- Acute postop heme positive stool
Discussed patient care with: Cardiology, Nursing, Respiratory Therapy, Pharmacy and Care Team
Subjective
-
Date of Service: March 19, 2025
Pt c/o constipation last night, able to have BM but noted heme positive stool
Objective Data
-
PT 13.5 Sec (11.4-14.6) 02/20/25 12:46
INR 0.98 02/20/25 12:46
Vital Signs
Vital Signs
Temp Pulse Resp BP Pulse Ox
98 F 74 18 123/62 98
03/19/25 02:59 03/19/25 00:00 03/19/25 02:59 03/18/25 23:01 03/19/25 02:59
CT Intake/Output/Weight
03/18/25 03/18/25 03/19/25
06:59 18:59 06:59
Intake Total 250 / 730 500 / 590 90 / 590
Output Total 1250 / 1410 160 / 1410
Balance 250 / 330 -750 / -820 -70 / -820
SaO2: 98 (RA)
Physical Exam
-
General: Awake, Oriented and AOx3
Cardiovascular: Regular rate & rhythm, No Murmurs and No Gallop
Respiratory: Decreased Breath Sounds (at bases)
Sternum: Stable
Incision: Clean, Dry, Intact and Dressing Intact
Extremities: No Edema
Data Reviewed
-
Lab Results: Results Reviewed
Medications: Active Meds Reviewed
Chest X-Ray: Report Reviewed and Image Reviewed
ECG: Report Reviewed and Image Reviewed
[2025-03-19 04:20] LABS: Hematocrit 27.2 % (37.0-47.0); Hemoglobin 9.4 g/dL (12.0-16.0); Mean Corp Hgb Conc. 34.6 g/dL (33.0-37.0); Mean Corpuscular Volume 87.5 fL (81.0-99.0); Platelet Count 332 10^3/uL (130-400); Red Cell Dist. Width 15.1 % (11.5-14.5)
[2025-03-19 04:40] LABS: Blood Urea Nitrogen 31 mg/dl (7-17); Calcium 8.6 mg/dl (8.4-10.2); Carbon Dioxide 23 mmol/L (22-30); Chloride 104 mmol/L (98-107); Estimated Creatinine Clearance 43 ml/min; Glucose 118 mg/dl (70-99); Magnesium 2.4 mg/dl (1.6-2.3); Potassium 4.8 mmol/L (3.5-5.1); Sodium 133 mmol/L (135-145); eGFR 56.60
--- NOTE | 2025-03-19 07:14 | CON.GI ---
Addendum entered and electronically signed by Cleve Forman DO 03/19/25 08:35:
I saw and examined the patient.
The CT MRI TECHNOLOGIST's note was reviewed and I agree with the note.
Comment: Ms. Dorsey is a 80 y.o female with a past medical history as detailed below and recently underwent a robotic-assisted thoracic surgery for a RUL mass on 03/03. Course complicated by drop in H/h along with rising BUN and dark black stools
concerning for melena. Patient notes near-syncopal episode when working with PT yesterday evening and subsequently developed multiple episodes of melena last evening. History notable for PUD in the past but denies any recent NSAID use or other blood
thinners. Prior EGD as below back in 2017 which revealed LA Grade B esophagitis, small hiatal hernia, gastritis and normal duodenum with pathology demonstrating Cotter's. Etiology of her melena seems most consistent with an acute UGIB and likely in
setting of PUD versus gastroduodenal erosions vs AVMs versus esophagitis. Regardless, she would benefit from an EGD this hospitalization for both diagnostic and potential therapeutic purposes if a bleeding ulcer were to be visualized. Recommend
keeping her strict NPO and treating with high dose IV PPI BiD. Discussed with cardiothoracic surgery team this AM with Dr. Dorado may proceed with an EGD from their standpoint. Agree with rest of care and recommendations as outlined below and would
benefit to follow-up in GI office given her known pancreatic cysts. See EGD report for additional findings and recommendations.
Thank you for allowing me to participate in the care of this patient. Please do not hesitate to call for any further questions.
Original Note:
Consultation
-
Date/Time Consultation Requested: 03/18/25 191
Date/Time Consultation Performed: 03/19/25 0700
Requesting Provider: ESSIE Garcia
Performing Provider: ESSIE Chau, Cleve Forman DO
Reason for Consultation: melena, anemia
Medical History
Chief Complaint / HPI
Chief Complaint: black stools, syncope
History of Present Illness:
Pt is a 80yo presents hx hx right upper lobe adeno CA, PUD, GERD, esophagitis, cotter's colon polyps, pancreatic cyst, ocular aneurysm, thyroid nodules, osteoporosis, rotator cuff tear, HTN, NIDDM, skin Ca, obesity with elective admission 03/03
for robotic assisted thoracic surgery for right upper lobe mass. Pt has been recovering and noted with syncopal episode with physical therapy along with black stool with drop in hbg and rise in BUN and asked to see. She was on SQ heparin but no
other anticoagulation. She admits to chronic GERD. She was on antacid therapy with Dr. Dupont but switch to apple cidar vinegar with continued stable symptoms. She admits to nausea with syncopal episode but no vomiting. She denies NSAID use.
Pt otherwise admits to prior constipation with use of prunes and aloe vera for bowel regiment. She denies dysphagia, abdominal pain or diarrhea but did have looser large black stool prior to GI consult. Last colonoscopy in [facility]
less than 3 years ago with small polyp. Last EGD with Dr. Dupont 2016 with done for GERD with grade B esophagitis, small HH, gastritis, nomrla duodenum concern for cotter's. Bx with diffuse mild intestinal metaplasia with chronic non specific
esophagitis. She was recommended 1 year follow up not completed. She also saw Dr. Whitfield in 2022 for 2 -- 2cm panc cysts and discussed EUS as she could not have MRI with aneurysm clip but did not follow up after first visit.
Past Medical History
Past Medical History: Cancer (right upper lobs adeno CA, skin Ca), GERD, HTN, NIDDM and Other ( PUD, colon polyps, panc cyst, barrrett's, thyroid nodule with prior FNA, osteoporosis, rotator cuff tear, whooping cough,aneurysm right eye, obesity )
Past Surgical History: Appendectomy, Gynecological (hysterectomy with BSP) and Other (excision of neck cyst, ankle cancer lesion removal)
Social History
Tobacco: Former Smoker
Alcohol: Occasional
Drug: None
Living: Alone
Employment: Retired
Family History
Family History: Other (mother breast and esophageal Ca, colon polyps)
Allergies / Home Medications
Allergy/AdvReac Type Severity Reaction Status Date / Time
pollen extracts Allergy Watery Verified 02/18/25 14:17
Eyes,
Rhinitis
�Medication �Instructions �Recorded
aloe vera 25 mg capsule 25 mg PO HS Supplement 12/12/24
ascorbic acid (vitamin C) 500 mg 500 mg PO DAILY Supplement 12/12/24
tablet (Vitamin C)
cholecalciferol (vitamin D3) 125 125 mcg PO DAILY Supplement 12/12/24
mcg (5,000 unit) tablet (Vitamin
D3)
cranberry 500 mg capsule 30,000 mg PO DAILY Supplement 12/12/24
cyanocobalamin (vitamin B-12) 1,000 mcg PO DAILY Supplement 12/12/24
1,000 mcg tablet (Vitamin B-12)
ragini extract 4 ml PO DAILY Supplement 12/12/24
magnesium glycinate 100 mg (as 400 mg PO DAILY Supplement 12/12/24
glycinate) tablet
ggfzpkowcfaa-lmdtqzhh-mdwjow tablet 1 tab PO DAILY Supplement 12/12/24
pyridoxine (vitamin B6) 100 mg 100 mg PO DAILY Supplement 12/12/24
tablet (Vitamin B-6)
red yeast rice 600 mg tablet 635 mg PO QPM High Cholesterol 12/12/24
sodium bicarbonate 1 tsp PO DAILY Supplement 12/12/24
turmeric root extract 500 mg tablet 500 mg PO DAILY Supplement 12/12/24
zinc acetate 50 mg (zinc) capsule 50 mg PO Q48H Supplement 12/12/24
Hair, Skin and Nails-Argan Oil 1 cap PO DAILY Supplement 01/06/25
flaxseed oil 1,000 mg capsule 1,000 mg PO DAILY Supplement 01/06/25
oregano oil 1,500 mg PO QPM Supplement 01/06/25
vit A palm and D3 in cod liver oil 1 cap PO Q48H Supplement 01/21/25
1,250 unit-130 unit-530 mg capsule
(Cod Liver Oil plus Vits A and D3)
Review of Systems
-
History Source: Patient
Constitutional: Reports No Symptoms
EENT: Reports No Symptoms
Respiratory: Reports Trouble Breathing (with steps )
Cardiac: Reports Syncope
Abdomen/GI: Reports Nausea and Black Stools
: Reports No Symptoms
Musculoskeletal: Reports Other (shoulder pain due for rotator cuff surgery )
Skin: Reports No Symptoms
Neurological: Reports Dizzy
Endocrine: Reports No Symptoms
Hematologic/Lymphatic: Reports Bleeding
Vital Signs
Temp Pulse Resp BP Pulse Ox
98 F 80 18 113/55 98
03/19/25 02:59 03/19/25 05:00 03/19/25 02:59 03/19/25 03:46 03/19/25 04:40
Physical Exam
Exam
General: Well Developed, Well Nourished and No Apparent Distress
HEENT: Normocephalic and Anicteric
Respiratory: Clear and Other (right side decreased with chest tube in place and small amount of drainage )
Cardiac: Regular Rhythm
GI: Soft, Non Tender and Non Distended
Rectal: Other (black per nursing staff )
Musculoskeletal: No Clubbing and No Cyanosis
Skin: Warm and Dry
Neuro: Awake, Alert and AO x 3
Psych: Calm
Results
WBC 9.0 10^3/uL (4.8-10.8) 03/19/25 04:00
Hgb 9.4 g/dL (12.0-16.0) L 03/19/25 04:00
Hct 27.2 % (37.0-47.0) L 03/19/25 04:00
MCV 87.5 fL (81.0-99.0) 03/19/25 04:00
Plt Count 332 10^3/uL (130-400) D 03/19/25 04:00
Absolute Neuts (auto) 7.6 10^3/uL (1.4-6.5) H 03/17/25 10:41
PT 13.5 Sec (11.4-14.6) 02/20/25 12:46
INR 0.98 02/20/25 12:46
Sodium 133 mmol/L (135-145) L 03/19/25 04:00
Potassium 4.8 mmol/L (3.5-5.1) 03/19/25 04:00
Chloride 104 mmol/L (98-107) 03/19/25 04:00
Carbon Dioxide 23 mmol/L (22-30) 03/19/25 04:00
BUN 31 mg/dl (7-17) H 03/19/25 04:00
Creatinine 1.0 mg/dL (0.6-1.0) 03/19/25 04:00
Calcium 8.6 mg/dl (8.4-10.2) 03/19/25 04:00
Total Bilirubin 0.6 mg/dl (0.2-1.3) 02/20/25 12:46
AST 14 U/L (14-36) 03/18/25 07:52
ALT 15 U/L (0-35) 03/18/25 07:52
Alkaline Phosphatase 119 U/L (38-126) 02/20/25 12:46
Lipase 195 U/L (23-300) 03/18/25 07:52
Diagnostic Image Results:
03/18/25 abd X ray Nonobstructive bowel gas pattern.
12/19/24 PT Pet Wbi W/CT Skull-thigh
There is a 1.9 cm pulmonary nodule in the right upper lobe which demonstrates a max SUV of 8.2 on initial imaging and 10.0 on delayed imaging. 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 There is no evidence of metastatic disease.
There is a 4.9 cm cystic lesion in the right adnexa and a 3.5 cm solid lesion in the left adnexa. These lesions appear stable in size from prior CT in 2021 and demonstrate no significant metabolic activity and are likely benign.
There is increased size of the cystic lesions along the pancreatic tail measuring 2.9 cm and 2.1 cm. These may represent sidebranch IPMN although cystic or mucinous neoplasm is possible. Recommend dedicated abdominal MRI for further evaluation.
Prior GI Procedures:
EGD: Dr. Dupont 2016 with done for GERD with grade B esophagitis, small HH, gastritis, nomrla duodenum concern for cotter's. Bx with diffuse mild intestinal metaplasia with chronic non specific esophagitis. She was recommended 1 year follow up
not completed.
Colonoscopy: in [facility] less than 3 years ago with small polyp.
Assessment / Plan
-
Pt is a 80yo presents hx hx right upper lobe adeno CA, PUD, GERD, esophagitis, cotter's colon polyps, pancreatic cyst, ocular aneurysm, thyroid nodules, osteoporosis, rotator cuff tear, HTN, NIDDM, skin Ca, obesity with elective admission 03/03
for robotic assisted thoracic surgery for right upper lobe mass. Pt has been recovering and noted with syncopal episode with physical therapy along with black stool with drop in hbg and rise in BUN and asked to see. She was on SQ heparin but no
other anticoagulation. She admits to chronic GERD. She was on antacid therapy with Dr. Dupont but switch to apple cidar vinegar with continued stable symptoms. She admits to nausea with syncopal episode but no vomiting. She denies NSAID use. Last
EGD with Dr. Dupont 2016 with done for GERD with grade B esophagitis, small HH, gastritis, normal duodenum concern for cotter's. Bx with diffuse mild intestinal metaplasia with chronic non specific esophagitis. She was recommended 1 year follow
up not completed. She also saw Dr. Whitfield in 2022 for 2 -- 2cm panc cysts and discussed EUS as she could not have MRI with aneurysm clip but did not follow up after first visit.
-melena with syncope
-anemia with drop in hbg after admission and rise in BUN concern for acute blood loss and UGI bleeding
-hx intestinal metaplasia, esophagitis small HH on prior EGD
-hx PUD/GERD
-pancreatic cyst with increased size on PET scan 12/2024- 2.9 cm and 2.1 cm IPMN vs pseudocyst-- prior Dr. Nahid herrmann recommended EUS
-S/P Robotic assisted thoracic surgery [RATS]/ Right upper lobectomy 03/03 for adeno CA
other medical problems:
-hx colon polyps follow [facility]
- Ocular aneurysm
- Thyroid nodules
- Osteoporosis
- Rotator cuff tear--awaiting surgery
- Hypertension
- NIDDM
-skin CA
PLAN:e
etiology of symptoms with concern for UGI bleeding - PUD, ectasia, esophagitis vs other
plan for EGD today
NPO
cont PPI
trend hbg and stool record - BUN trending down
also noted panc cyst did not proceed in 2022 for EUS as noted follow up with Dr. Whitfield (cannot have MRI with aneurysm clip) some increased growth on PET-- reviewed with pt for OP follow up
cont post-op care with thoracic surgery per CT surgery team
reviewed with Dr. Dorado and nursing staff ok to proceed for EGD
-
-
Thank you for consultation and allowing me to participate in the patient's care. Please call the weatherization operations manager GI physician during the after hours with any questions or concerns.
[2025-03-19] MEDS: MIRALAX PO (07:45)
[2025-03-19] MEDS: SENOKOT PO ×3 (07:46→20:36)
[2025-03-19] MEDS: VITAMIN D3 (cholecalciferol) PO (07:49)
[2025-03-19] MEDS: VITAMIN C PO (07:49)
--- NOTE | 2025-03-19 08:00 | PTCARENOTE ---
pt received from previous RN, oriented, OOB in chair. SR on the monitor, HR 70-90s. SBP 90-110s. weakly palpable pulses. pt on RA, 96% POX. lungs diminished in bases. +dry CLINICAL RESEARCH MANAGER cough. IS encouraged. R lateral CT to Heimlich valve and drainage bag,
slit in bag verified w/ PA. +crepitus in R upper chest/shoulder/neck, completed w/ previous RN. pt abdomen s/n, denies n/v. NPO for EGD. +black stools, PA and GI aware. voids. R lateral surgical incisions MARCELO. CT dressing c/d/i. PIV. see worklist
for VS, I&O, and assessment.
[2025-03-19] MEDS: NSS (PRESERVATIVE FREE) 10 ML IV (08:31)
[2025-03-19] MEDS: BACTRIM DS 800 MG/160 MG 1 TABLET PO ×2 (08:31→20:34)
[2025-03-19] MEDS: PROTONIX IV 40 MG IV (08:31)
[2025-03-19] MEDS: LOPRESSOR 25 MG PO ×2 (08:32→20:34)
--- NOTE | 2025-03-19 12:50 | PTCARENOTE ---
pt report received from PACU post EGD, pt transferred from stretcher to bed. no c/o pain, VSS. resting between care.
--- NOTE | 2025-03-19 15:47 | PTCARENOTE ---
pt VSS, no changes in assessment. ambulates w/ assist to bathroom. OOB in chair, air cushion in place.
--- NOTE | 2025-03-19 18:38 | PTCARENOTE ---
pt ambulated to bathroom, small black BM. OOB in chair. chest tube dressing changed.
[2025-03-19] MEDS: REMOVE LIDOCAINE PATCH REMOVE (19:33)
--- NOTE | 2025-03-19 20:35 | PTCARENOTE ---
Patient received from RN @ 1900. Patient sitting in chair comfortably w/ call burk in reach. NSR on monitor. BP 123/86 HR 74. Heart sounds audible. No edema noted. POX 99% RA. Lungs diminished in bases bilaterally. Right lateral Heimlich
valve chest tube bag draining scant amount of red drainage. Crepitus noted on upper right neck and back. All surgical sites C/D/I. Right PIV patent and intact. See worklist for more details.
[2025-03-20] VITALS (13 sets, daily range): BP systolic 103–144; BP diastolic 37–88; PULSE 92; BMI 31.0
--- NOTE | 2025-03-20 00:31 | PTCARENOTE ---
Patient reassessed. NSR BP 127/58 HR 60 POX 95%.
--- NOTE | 2025-03-20 03:12 | W.PN.CT ---
Today's Communication / Plan
-
pod #17
- Continue R pleural chest tube to Heimlich valve (since 03/16)
- Empiric Bactrim Ds given ongoing chest tube requirement
- Continue IV PPI BID for nonbleeding duodenal ulcer identified on EGD 03/19
- Biopsy results of gastric erosions (03/19) pending
- Prophylactic SQ heparin 5,000 Q8h stopped 03/18
- Encourage ambulation TID
- Dispo: SNF vs acute rehab, per PT
Assessment / Plan
-
- S/P Robotic assisted thoracic surgery [RATS]/ Right upper lobectomy with partial wedge of the right middle lobe using electrocautery as it was adherent to the right upper lobe mass/Radical lymph node dissection/Regional block by anesthesia, by
Ave, 03/03/25, pod#17
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
2. Ocular aneurysm
3. Thyroid nodules
4. Osteoporosis
5. Colonic polyps
6. Rotator cuff tear, awaiting surgery
7. Hypertension
8. T2DM (A1C 6.6)-diet controlled
9. Pancreatic cyst
10. GERD
11. PUD
12. Skin cancer status post resection
13. Class 1 obesity (BMI 33)
- Acute postop small-mod R PTX with subcutaneous emphysema
- Acute postop anemia
- Preoperative E. Faecalis (>100,000k) UTI. Patient started on Macrobid 100 mg twice daily x 3 days on 03/06/25
- Acute postop persistent right apical ptx S/p blood patch by Dr. Dorado, 03/11
- Acute postop hyponatremia
- Acute postop near syncope
- Acute postop nonbleeding duodenal ulcer
Discussed patient care with: Nursing, Respiratory Therapy and Pharmacy
Subjective
Procedure
Feels better, no further nausea. Hopeful for discharge to rehab soon
-
Date of Service: March 20, 2025
Objective Data
-
PT 13.5 Sec (11.4-14.6) 02/20/25 12:46
INR 0.98 02/20/25 12:46
Vital Signs
Vital Signs
Temp Pulse Resp BP Pulse Ox
98.3 F 72 16 113/88 97
03/20/25 01:53 03/20/25 02:00 03/20/25 01:53 03/20/25 01:53 03/20/25 01:[address]
CT Intake/Output/Weight
03/19/25 03/19/25 03/20/25
06:59 18:59 06:59
Intake Total 90 / 590 580 / 580
Output Total 160 / 1410 20 / 20
Balance -70 / -820 560 / 560
SaO2: 97
Physical Exam
-
General: AOx3
Cardiovascular: Regular rate & rhythm
Respiratory: Clear and Other (R pleural chest tube t Heimlich valve/collection bag w/scant serosanguinous drainage)
Incision: Clean, Dry and Intact
Extremities: No Edema and No Erythema
Data Reviewed
-
Lab Results: Results Reviewed
Medications: Active Meds Reviewed
Chest X-Ray: Report Reviewed and Image Reviewed
[2025-03-20 04:01] LABS: Hematocrit 27.1 % (37.0-47.0); Hemoglobin 9.0 g/dL (12.0-16.0); Mean Corp Hgb Conc. 33.2 g/dL (33.0-37.0); Mean Corpuscular Volume 90.0 fL (81.0-99.0); Platelet Count 370 10^3/uL (130-400); Red Cell Dist. Width 15.1 % (11.5-14.5)
[2025-03-20 04:08] LABS: Blood Urea Nitrogen 18 mg/dl (7-17); Calcium 8.8 mg/dl (8.4-10.2); Carbon Dioxide 25 mmol/L (22-30); Chloride 104 mmol/L (98-107); Estimated Creatinine Clearance 43 ml/min; Glucose 125 mg/dl (70-99); Magnesium 2.4 mg/dl (1.6-2.3); Potassium 5.0 mmol/L (3.5-5.1); Sodium 134 mmol/L (135-145); eGFR 56.60
--- NOTE | 2025-03-20 05:09 | PTCARENOTE ---
Patient reassessed. Ambulating to bathroom. NSR on monitor. VSS.
--- NOTE | 2025-03-20 06:01 | W.PN.GI.CBS2 ---
Today's Communication / Plan
-
No signs of recurrent GI bleeding and stable H/h with down-trending BUN. Continue IV PPI today and may transition to oral tomorrow. See rest of care as outlined below. GI team will sign-off, please re-contact with any questions or concerns.
Assessment / Plan
-
Pt is a 80yo presents hx hx right upper lobe adeno CA, PUD, GERD, esophagitis, cotter's colon polyps, pancreatic cyst, ocular aneurysm, thyroid nodules, osteoporosis, rotator cuff tear, HTN, NIDDM, skin Ca, obesity with elective admission 03/03
for robotic assisted thoracic surgery for right upper lobe mass. Pt has been recovering and noted with syncopal episode with physical therapy along with black stool with drop in hbg and rise in BUN and asked to see. She was on SQ heparin but no
other anticoagulation. She admits to chronic GERD. She was on antacid therapy with Dr. Dupont but switch to apple cidar vinegar with continued stable symptoms. She admits to nausea with syncopal episode but no vomiting. She denies NSAID use. Last
EGD with Dr. Dupont 2016 with done for GERD with grade B esophagitis, small HH, gastritis, normal duodenum concern for cotter's. Bx with diffuse mild intestinal metaplasia with chronic non specific esophagitis. She was recommended 1 year follow
up not completed. She also saw Dr. Whitfield in 2022 for 2 -- 2cm panc cysts and discussed EUS as she could not have MRI with aneurysm clip but did not follow up after first visit.
#Melena with syncope
#Large, Cratered Duodenal Ulcer
#Acute Blood Loss Anemia
#Symptomatic Anemia
#Hx of Pancreatic Cysts
#S/P Robotic assisted thoracic surgery [RATS]/ Right upper lobectomy 03/03 for adeno CA
- S/p EGD 03/19/25: Large, 2 cm cratered non-bleeding duodenal ulcer with a flat pigmented spot (FC IIc) within duodenal bulb (s/p biopsies around edge), duodenitis, gastric erosions and salmon colored mucosa suggestive of BE, otherwise normal
without any old/fresh blood throughout examined upper GI tract
- Hgb stable 9.3 -> 9.4 -> 9.0 and down-trending BUN 31 -> 18 and without any signs to suggest recurrent GI bleeding. No further melena or maroon colored stools since EGD.
Recommendations:
- Okay to ADAT
- Trend Hgb with CBC q daily, transfuse as needed
- Continue IV PPI 40 mg BiD today, may transition to oral PPI near discharge- PPI 40 mg BiD x 8 weeks and once daily indefinitely
- Await pathology results from EGD
- No plans for repeat EGD at this time, however if concern for recurrent GI bleeding notify GI
- Strict avoidance of all NSAIDs
- Advised close outpatient f/u with GI given her GI bleed and known pancreatic cysts (previous did not f/u for prior EUS 2022)
- Rest of ongoing post-operative care as per CVICU
Discussed with primary CVICU attending, Dr Dorado. GI will sign-off. Please re-contact with any questions or concerns.
Subjective
Subjective
Date of Service: March 20, 2025
- S/p EGD 03/19/25: Large, 2 cm cratered non-bleeding duodenal ulcer with a flat pigmented spot (FC IIc) within duodenal bulb (s/p biopsies around edge), duodenitis, gastric erosions and salmon colored mucosa suggestive of BE, otherwise normal
without any old/fresh blood throughout examined upper GI tract
- Hgb stable 9.3 -> 9.4 -> 9.0 and down-trending BUN 31 -> 18
- Otherwise, no acute events overnight
Feeling well and resting comfortably in bed. No further melena yesterday evening/overnight or early this AM. Denies any abdominal pain or nausea/vomiting. Discussed findings of her recent EGD at bedside this AM.
Objective
Data Reviewed
Laboratory Data:
Laboratory Results
03/20/25 03:35
03/20/25 03:35
Laboratory Results
PT 13.5 Sec (11.4-14.6) 02/20/25 12:46
INR 0.98 02/20/25 12:46
Magnesium 2.4 mg/dl (1.6-2.3) H 03/20/25 03:35
Total Bilirubin 0.6 mg/dl (0.2-1.3) 02/20/25 12:46
AST 14 U/L (14-36) 03/18/25 07:52
ALT 15 U/L (0-35) 03/18/25 07:52
Alkaline Phosphatase 119 U/L (38-126) 02/20/25 12:46
Lipase 195 U/L (23-300) 03/18/25 07:52
Vital Signs and I&O:
Vital Signs
Temp Pulse Resp BP Pulse Ox
98 F 71 16 133/56 96
03/20/25 05:08 03/20/25 05:06 03/20/25 05:08 03/20/25 05:06 03/20/25 05:08
I&O
03/18/25 03/19/25 03/20/25
06:59 06:59 06:59
Intake Total 730 / 730 590 / 590 580 / 580
Output Total 400 / 400 1410 / 1410 20 / 20
Balance 330 / 330 -820 / -820 560 / 560
Physical Exam
Physical Exam
HEENT: Anicteric and Moist mucous membranes
Cardiology: Other (RR on tele)
Pulmonary: Other (Normal WOB on room air)
GI: Soft, Non Distended and Non Tender
Neuro: Non Focal
[2025-03-20] MEDS: MIRALAX PO (08:32)
[2025-03-20] MEDS: LOPRESSOR 25 MG PO ×2 (08:38→21:00)
[2025-03-20] MEDS: VITAMIN C 500 MG PO (08:38)
[2025-03-20] MEDS: SENOKOT 8.6 MG PO (08:38)
[2025-03-20] MEDS: BACTRIM DS 800 MG/160 MG 1 TABLET PO ×2 (08:38→21:00)
[2025-03-20] MEDS: VITAMIN D3 (cholecalciferol) 125 MCG PO (08:38)
[2025-03-20] MEDS: PROTONIX IV 40 MG IV ×2 (08:39→15:47)
[2025-03-20] MEDS: NSS (PRESERVATIVE FREE) 10 ML IV ×2 (08:39→15:47)
--- NOTE | 2025-03-20 09:20 | PTCARENOTE ---
Patient received from car shifter RN; AAOx3, responds spontaneously to RN and follows commands; VSS; NSR on monitor; +1 DP and +2 radial pulses; CTx1 connected to heimlich valve bag - crepitus noted from right upper chest to right neck area; SpO2
95-99% on RA; Lungs diminished at bases; Patient urinating in bathroom; Patient states BM is still slightly dark and hard - scheduled laxative given; Surgical sites intact; PIVx1 - #20 RAC; See nursing documentation for further information
--- NOTE | 2025-03-20 14:26 | PTCARENOTE ---
Chest tube removed by CVNP Joy Rosas at bedside; VSS; No complications noted; Vaseline gauze, 4x4 gauze, and ABD applied to site; Patient resting comfortably in bed
--- NOTE | 2025-03-20 16:27 | CM ---
pt approved for [facility], bed is avail, anticipate tomorrow.
--- NOTE | 2025-03-20 16:42 | PTCARENOTE ---
Repeat CXR completed at bedside; Patient ambulating in hallways; Patient denies any shortness of breath at this time
--- NOTE | 2025-03-20 16:57 | W.DCSUMMARY ---
Discharge Summary
Discharge Data
Date of Admission: 03/03/25
Date of Discharge: 03/21/25
-
Pending Results: No
Hospital Course
Primary care physician: Dr. Jaskaran Lim
Outpatient welding machine setter: Dr. Barragan
Inpatient consultants: Gastroenterology
Procedures:
1. RATS RUL Lobectomy with partial wedge resection and RML lymph note resection with Dr. Anson Dorado (03/03/25)
2. EGD (03/19/25)
Primary Diagnosis:
1. Adenocarcinoma of RUL
Secondary Diagnoses:
1. HTN
2. HLD
3. T2DM (diet controlled)
4. GERD with prior gastric ulcers
5. R eye aneurysm
6. Benign, B/L thyroid nodules s/p FNA biopsy x 1 (2013)
7. osteoporosis
8. rotator cuff tear
9. Appendectomy
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
HPI: Ms. Jany Dorsey is a 80-year-old female who presented for outpatient consultation after an abnormal PET CT scan performed on 01/07/25 that demonstrated a 0.9 cm RUL pulmonary nodule and was found to have stage I lung cancer in which she was
referred for RATS RUL + LN dissection. On 03/03/25 she presented to [facility] for an elective RATS RUL lobectomy with partial wedge resection and RML lymph node resection with Dr. Anson Dorado. Lymph node biopsy showed stage I adenocarcinoma. Following
surgery, she recovered within the CVICU for management of her R pleural chest tube with persistent air leak. Airleak ultimately resolved by post-operative day [address] was removed and CXR remaind unchanged. Her hospital course was complicated
by persistent heartburn and heme positive stools in which GI was consulted leading to obtaining an EGD revealing non-bleeding duodenal ulcers in which PPI PPx therapy was started. She was ultimately discharged on postoperative day 19 to SNF due to
deconditioning secondary to prolonged hospitalization.
Hospital course: Ms. Jany Dorsey is a 80-year-old female who presented for outpatient consultation with Dr. Anson Dorado after an abnormal PET CT scan performed on 01/07/25 that demonstrated a 0.9 cm RUL pulmonary nodule. She was found to have
stage I lung cancer in which she was referred for RATS RUL + LN dissection. On 03/03/25 she presented to [facility] for an elective RATS RUL lobectomy with partial wedge resection and RML lymph node resection with Dr. Anson Dorado. Lymph node biopsy showed
stage I adenocarcinoma. Following surgery, she recovered within the CVICU for management of her R pleural chest tube with persistent air leak. Postoperative course was complicated by persistent air leak due to R PTX and development of subcutaneous
emphysema. PTX and subcutaneous emphysema was monitored with serial CXR while chest tube support was manipulated. On postoperative day 8, a blood patch was attempted at bedside to assist in resolution of PTX with increased suction. On postoperative
day 10, R CT was exchanged for pigtail and maintained to suction. Bactrim was initiated BID for infection prevention and will be discontinued until 03/23/25. On postoperative day 18, R CT airleak ultimately resolved by post, in which CT was removed
and following CXR remained unchanged in regards to size of R PTX and/or progression of subcutaneous emphysema. Her hospital course was complicated by persistent heartburn and heme positive stools in which GI was consulted leading to obtaining an
EGD revealing non-bleeding duodenal ulcers in which PPI PPx therapy was started. Pre-operative urine culture showed E.faecalis UTO in which she was treated with Macrobid 100 mg BID x 3 days. She was ultimately discharged on postoperative day 19 to
SNF due to deconditioning secondary to prolonged hospitalization. Upon discharge, she was recommenced to continue Protonix 40 mg PO BID for 8-weeks, with transition to daily indefinitely. She was referred to follow-up with GI as an outpatient. An
appointment was made to follow-up with the [facility] within the office 1-week from discharge. Prior to her appointment, she a follow-up CXR was ordered. Instructions for wound care were provided and included within the discharge
instructions.
Home medication changes:
Post-operative pain management:
- Tylenol 650 mg PO q8h as needed for mild pain/COLE/fever
GI PPx:
- Protonix 40 mg PO BID x 8 weeks, then 40 mg PO daily
Post-operative arrhythmia PPx:
- Metoprolol tartrate 25 mg PO BID
Infection PPx following CT replacement:
- Bactrim (800/160) BID - last dose 03/23/25
Discharge Plan
-
Patient Disposition: Jail/SNF
Discharge Diagnosis/Procedures: Right upper lobectomy and partial wedge resection right middle lobe (03/03) with Dr. Dorado
Condition: Good
Diet: Diabetic, Carb Controlled
Activity: No strenuous activity
Driving Restrictions: No driving for 2 weeks
Others Tests: Obtain CXR on Monday 03/26 prior to seeing ESSIE Pham in Cardiothoracic office.
Wound Care: Maintain dry dressing to Chest Tube insertion site.
Dressing to be changed every other day/as needed by Transitional Care Nursing:
- Cleanse site with CHG
- Place Vaseline Gauze over insertion site
- Place 4 x 4 Gauze over Vaseline
- Use 3M barrier before adhering dressing to skin
Specialty Instructions: Weigh Daily- Call MD for wt gain/loss 3 lbs overnight/5 lbs in 1 week
Activity Restrictions/Additional Instructions:
ACTIVITY:
-continue to advance activity as tolerated
-use stairs as tolerated
DRIVING RESTRICTIONS:
-No driving for one month or until approved by your surgeon
WOUND CARE:
-Shower daily. Use soap & water.
-No lotions, creams or powders on incision area.
-Maintain dry dressing with Vaseline gauze over wound as directed above.
DIET:
-continue a low fat/low cholesterol diet.
-If you are diabetic, continue carb controlled diet.
Referrals:
[facility] [Outside]
Jaskaran Lim CRNP [Family Provider]
Cleve Forman DO [Active, Gastroenterology]
Referral Note: GI follow up with GI bleeding. Will also need to consider further work up for pancreatic cyst noted on recent PET scan.
Alma Ashraf CRNP [Specified Professional Personl, Cardiac Surgery] - 03/26/25 10:00 am
Referral Note: Post-op Visit. Assess for R CT for removal.
Prescriptions:
New
sennosides [Holly-adebayo] 8.6 mg Tablet
8.6 mg PO BIDPRN PRN (Reason: Constipation) Qty: 0 0RF
acetaminophen 325 mg Tablet
650 mg PO Q6HPRN PRN (Reason: mild pain,headache,temp >101F ) Qty: 0 0RF
sulfamethoxazole-trimethoprim 800-160 mg Tablet
1 tab PO BID 4 Days Qty: 8 0RF
metoprolol tartrate 25 mg Tablet
25 mg PO BID 30 Days Qty: 60 0RF
pantoprazole 40 mg Tablet,Delayed Release (Dr/Ec)
40 mg PO BID 56 Days Qty: 112 0RF
Rx Instructions:
Take twice a day for 8-weeks, starting 05/19/25 take once daily.
Continued
zinc acetate 50 mg (zinc) Capsule
50 mg PO Q48H
cyanocobalamin (vitamin B-12) [Vitamin B-12] 1,000 mcg Tablet
1,000 mcg PO DAILY
ascorbic acid (vitamin C) [Vitamin C] 500 mg Tablet
500 mg PO DAILY
pyridoxine (vitamin B6) [Vitamin B-6] 100 mg Tablet
100 mg PO DAILY
cranberry 500 mg Capsule
30,000 mg PO DAILY
aloe vera 25 mg Capsule
25 mg PO HS
kbiaisfahuet-arvctsff-akrlon Tablet
1 tab PO DAILY
magnesium glycinate 100 mg Tablet
400 mg PO DAILY
cholecalciferol (vitamin D3) [Vitamin D3] 125 mcg (5,000 unit) Tablet
125 mcg PO DAILY
red yeast rice 600 mg Tablet
635 mg PO QPM
turmeric root extract 500 mg Tablet
500 mg PO DAILY
ragini extract
4 ml PO DAILY
flaxseed oil 1,000 mg Capsule
1,000 mg PO DAILY
Hair, Skin and Nails-Argan Oil
1 cap PO DAILY
oregano oil
1,500 mg PO QPM
Cod Liver Oil plus Kelley and D3 1,250 unit-130 unit-530 mg Capsule
1 cap PO Q48H
No Action
sodium bicarbonate
1 tsp PO DAILY
Rx Instructions:
Alternates with Lemon Juice
Discharge Orders:
Discharge Patient (As Directed); Ordered 03/21/25
Ordered By: Joy Curran
Care Plan Goals
Care Plan Goals:
Problem: Readiness for enhanced knowledge related to diagnosis and treatment plan
Goal: Understand your diagnosis and treatment plan needs, including medications if applicable.
Instructions: Know your diagnosis, underlying causes and treatment plan options, including medications if applicable. Consult with your health care team to learn about your diagnosis and treatment plan, including medications if applicable.
Discharge Date and Time
Print Language: AMHARIC
[2025-03-20] MEDS: REMOVE LIDOCAINE PATCH REMOVE (20:40)
[2025-03-20] MEDS: SENOKOT PO (20:40)
--- NOTE | 2025-03-20 21:00 | PTCARENOTE ---
Patient received OOB in chair watching television. Patient A+A+Ox3. No neurological deficits noted. No c/o headache, dizziness or lightheadedness. Patient ambulated by self to bathroom. Steady gait. +Void. +BM - Soft brown medium BM. Patient
washed face/denture/mouth care. Patient ambulated to bed. No c/o SOB. Room air. SpO2 93%. Subcutaneous emphysema noted over right upper back, shoulder and neck regions. Sinus Rhythm. Heart rate 70's. Blood pressure 115/49 (68). Patient with
no c/o chest pain, pressure or discomfort. Abdomen soft, round, nontender. No melena noted. No c/o nausea. No vomiting. Voiding without difficulty. Patient with no c/o back or flank pain. Positive, palpable pulses. Right lateral chest/back
- Dressing intact. Patient resting in bed. Assessment as documented.
[2025-03-21] VITALS (7 sets, daily range): BP systolic 113–145; BP diastolic 54–88; PULSE 82; O2SAT 96; BMI 30.9
--- NOTE | 2025-03-21 00:15 | PTCARENOTE ---
Patient sleeping without difficulty. No further changes from previous assessment.
--- NOTE | 2025-03-21 03:02 | W.PN.CT ---
Today's Communication / Plan
-
pod#[id number]
- Protonix changed to oral route 40 mg BiD x 8 weeks and once daily indefinitely per GI recommendations
- Gastric biopsy result: Benign duodenal mucosa with Michelle gland hyperplasia and reactive change. Negative for neoplasm
- Discharge to [facility] today
- Patient to obtain folllow-up CXR on 03/[address] appointment
Assessment / Plan
-
- S/P Robotic assisted thoracic surgery [RATS]/ Right upper lobectomy with partial wedge of the right middle lobe using electrocautery as it was adherent to the right upper lobe mass/Radical lymph node dissection/Regional block by anesthesia, by
Ave, 03/03/25, pod#[id number]
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
2. Ocular aneurysm
3. Thyroid nodules
4. Osteoporosis
5. Colonic polyps
6. Rotator cuff tear, awaiting surgery
7. Hypertension
8. T2DM (A1C 6.6)-diet controlled
9. Pancreatic cyst
10. GERD
11. PUD
12. Skin cancer status post resection
13. Class 1 obesity (BMI 33)
- Acute postop small-mod R PTX with subcutaneous emphysema
- Acute postop anemia
- Preoperative E. Faecalis (>100,000k) UTI. Patient started on Macrobid 100 mg twice daily x 3 days on 03/06/25
- Acute postop persistent right apical ptx S/p blood patch by Dr. Dorado, 03/11
- Acute postop hyponatremia
- Acute postop near syncope
- Acute postop nonbleeding duodenal ulcer
Discussed patient care with: Cardiology, Nursing and Respiratory Therapy
Subjective
Procedure
feels much better s/p chest tube removal 03/20/25. Looking forward to DC to [facility] rehab
-
Date of Service: March 21, 2025
Objective Data
-
Lab Results
03/20/25 03:35
03/20/25 03:35
PT 13.5 Sec (11.4-14.6) 02/20/25 12:46
INR 0.98 02/20/25 12:46
Vital Signs
Vital Signs
Temp Pulse Resp BP Pulse Ox
98.1 F 62 16 108/37 95
03/20/25 23:40 03/21/25 01:00 03/20/25 23:40 03/20/25 23:40 03/20/25 23:40
CT Intake/Output/Weight
03/20/25 03/20/25 03/21/25
06:59 18:59 06:59
Intake Total 480 / 720 240 / 720
Balance 480 / 720 240 / 720
SaO2: 95
Physical Exam
-
General: AOx3
Cardiovascular: Regular rate & rhythm
Respiratory: Clear
Incision: Clean, Dry, Intact and Other (R thoracotomy)
Extremities: No Edema
Data Reviewed
-
Lab Results: Results Reviewed
Medications: Active Meds Reviewed
Chest X-Ray: Report Reviewed and Image Reviewed
--- NOTE | 2025-03-21 04:00 | PTCARENOTE ---
Patient sleeping without difficulty. Assessment/Interventions as documented.
[2025-03-21] MEDS: MIRALAX PO (07:15)
[2025-03-21] MEDS: SENOKOT PO (07:15)
[2025-03-21] MEDS: BACTRIM DS 800 MG/160 MG 1 TABLET PO (07:27)
[2025-03-21] MEDS: LOPRESSOR 25 MG PO (07:27)
[2025-03-21] MEDS: VITAMIN C 500 MG PO (07:27)
[2025-03-21] MEDS: PROTONIX 40 MG PO (07:27)
[2025-03-21] MEDS: VITAMIN D3 (cholecalciferol) 125 MCG PO (07:27)
--- NOTE | 2025-03-21 09:16 | PTCARENOTE ---
Patient received from shift production supervisor RN; AAOx3, responds spontaneously to RN and follows commands; VSS; NSR on monitor; +1 DP and +2 radial pulses; SpO2 95-99% on RA; Lungs diminished at bases; IS 2500 ml; Patient urinating in bathroom; Patient states
BM overnight is brown, formed; Surgical sites intact; PIVx1 - #20 RAC; See nursing documentation for further information
[2025-03-21 11:58] LABS: COVID-19 Antigen Negative (Negative)
--- NOTE | 2025-03-21 12:56 | PTCARENOTE ---
Report called to [facility]; , spoke to Elsa AVILA - states full understanding and has no further questions asked at this time; Patient showered with CHG; PIVx1 and telemetry pack removed; Patient belongings taken with
patient; COVID swab sent to lab and tested negative; Patient picked up by wheelchair transport
--- NOTE | 2025-03-21 13:27 | PN.CDI ---
CDI
- -
CDI:
Physician Documentation Request
Admit Date: 03/03/25 07:11
Dear Doctor Dickson,
03/19 patient underwent upper Gi endoscopy for acute post hemorrhagic anemia and melena.
EGD revealed large cratered duodenal ulcer, salmon colored mucosa suggestive of BE, duodenitis, gastric erosion
After study, what is the most likely etiology of the melena
duodenal ulcer
gastric erosion
duodenitis
[place]'s esophagus
Multifactorial - please specify
Other
Use of terms such as suspected, likely, concern for, or probable (associated with a specific diagnosis that is being evaluated, monitored, or treated as if it exists) are acceptable and can be coded in the inpatient setting, when documented at the
time of discharge.
Thank you,
Myra Ewing RN, BSN
CDI Specialist
tiger text
Please use your independent medical judgment in providing your response.
--- NOTE | 2025-03-25 16:39 | W.PN.UPDATE ---
Update Note
Progress Note Update
CODING INQUIRY:
The diagnosis should be duodenal ulcer as source of patient's acute blood loss anemia and GI hemorrhage.
== END 2025-03-21 13:40 | DRG 163 ==
LOC: CVICU 07:11
PROVIDERS: Nurse Practitioner; Nurse Practitioner Adult Health; ADMITTING PHYSICIAN Thoracic Surgery (Cardiothoracic Vascular Surgery); CONSULT PHYSICIAN Student in an Organized Health Care Education/Training Program
PROC: 8E0W4CZ Robotic Assisted Procedure of Trunk Region, Percutaneous Endoscopic Approach (ICD-10-PCS; 2025-03-03)
PROC: 0BBD4ZZ Excision of Right Middle Lung Lobe, Percutaneous Endoscopic Approach (ICD-10-PCS; 2025-03-03)
PROC: 07T74ZZ Resection of Thorax Lymphatic, Percutaneous Endoscopic Approach (ICD-10-PCS; 2025-03-03)
PROC: 0BTC4ZZ Resection of Right Upper Lung Lobe, Percutaneous Endoscopic Approach (ICD-10-PCS; 2025-03-03)
PROC: 0W9930Z Drainage of Right Pleural Cavity with Drainage Device, Percutaneous Approach (ICD-10-PCS; 2025-03-13)
PROC: 0WP930Z Removal of Drainage Device from Right Pleural Cavity, Percutaneous Approach (ICD-10-PCS; 2025-03-13)
PROC: 30233N1 Transfusion of Nonautologous Red Blood Cells into Peripheral Vein, Percutaneous Approach (ICD-10-PCS; 2025-03-18)
PROC: 0DB98ZX Excision of Duodenum, Via Natural or Artificial Opening Endoscopic, Diagnostic (ICD-10-PCS; 2025-03-19)
PROC: 0DB68ZX Excision of Stomach, Via Natural or Artificial Opening Endoscopic, Diagnostic (ICD-10-PCS; 2025-03-19)
PROC: 0DB58ZX Excision of Esophagus, Via Natural or Artificial Opening Endoscopic, Diagnostic (ICD-10-PCS; 2025-03-19)
DX: C34.11 Malignant neoplasm of upper lobe, right bronchus or lung (principal); K26.4 Chronic or unspecified duodenal ulcer with hemorrhage; D62 Acute posthemorrhagic anemia; J95.812 Postprocedural air leak; T79.7XXA Traumatic subcutaneous emphysema, initial encounter; J95.811 Postprocedural pneumothorax; N39.0 Urinary tract infection, site not specified; E87.1 Hypo-osmolality and hyponatremia; I10 Essential (primary) hypertension; E11.9 Type 2 diabetes mellitus without complications; J43.9 Emphysema, unspecified; E04.2 Nontoxic multinodular goiter; M81.0 Age-related osteoporosis without current pathological fracture; K21.9 Gastro-esophageal reflux disease without esophagitis; E78.00 Pure hypercholesterolemia, unspecified; K22.70 Barrett's esophagus without dysplasia; E66.811 Obesity, class 1; Y83.6 Removal of other organ (partial) (total) as the cause of abnormal reaction of the patient, or of later complication, without mention of misadventure at the time of the procedure; R55 Syncope and collapse; B95.2 Enterococcus as the cause of diseases classified elsewhere; Z79.899 Other long term (current) drug therapy; Z68.30 Body mass index [BMI] 30.0-30.9, adult; Z86.0100 Personal history of colon polyps, unspecified; Z87.11 Personal history of peptic ulcer disease; Z87.891 Personal history of nicotine dependence
CPT/HCPCS: 32505; 36415; 71045; 74018; 80048; 80053; 81003; 81015; 82248; 83036; 83690; 83735; 84450; 84460; 85025; 85027; 85610; 86850; 86900; 86901; 86920; 87070; 87077; 87086; 87186; 87811; 88305; 88309; 88342; 93005; 93880; 97116; 97162; 97166; 97530; 97535; P9016

== ENCOUNTER → 2025-08-11 09:59 | Outpatient (REF) | payer OTHER, SELFPAY | LOC: HWRAD 09:59 | DX: M85.89 Other specified disorders of bone density and structure, multiple sites (principal); Z12.31 Encounter for screening mammogram for malignant neoplasm of breast | CPT/HCPCS: 77063; 77067; 77080 ==

== ENCOUNTER → 2025-08-15 09:57 | Outpatient (REF) | payer OTHER, SELFPAY | LOC: HWRAD 09:57 | PROVIDERS: ATTENDING PHYSICIAN Internal Medicine Critical Care Medicine | DX: R91.8 Other nonspecific abnormal finding of lung field (principal); C34.11 Malignant neoplasm of upper lobe, right bronchus or lung | CPT/HCPCS: 71250 ==